=== PATIENT | female | born 1990 | race American Indian/Alaskan Native ===

== ENCOUNTER 2018-03-03 02:41 | Emergency (ER) | payer SELFPAY ==
[2018-03-03 03:00] LABS: HCG,QUALITATIVE URINE NEGATIVE (NEGATIVE)
[2018-03-03 03:07] LABS: SQUAMOUS EPITHIAL 3 /hpf (0-5); URINE BILIRUBIN NEGATIVE (NEGATIVE); URINE BLOOD NEGATIVE (NEGATIVE); URINE CLARITY Hazy (Clear); URINE COLOR Yellow (YELLOW); URINE GLUCOSE (UA) NORMAL (Normal); URINE LEUKOCYTE ESTERASE TRACE Leu/uL (Negative); URINE PROTEIN NEGATIVE (NEGATIVE); URINE UROBILINOGEN NORMAL mg/dL (0.2-1.0)
[2018-03-03] MEDS ORDERED: cefTRIAXone (Rocephin) 250 mg Inj IM STA (03:38)
--- NOTE | 2018-03-03 04:22 | C.PDOC ---
History Of Present Illness 27 y/o female presents to the ED with complaints of suprapubic pain, dysuria, and vaginal discharge with foul odor for 2 days. Patient is sexually active, and admits she does not use protection. No prior history of STDs. Otherwise she denies any fever, nausea, or vomiting. Time Seen by Provider: 03/03/18 03:11 Chief Complaint (Nursing): Female Genitourinary History Per: Patient History/Exam Limitations: no limitations Onset/Duration Of Symptoms: Days Current Symptoms Are (Timing): Still Present Past Medical History Reviewed: Historical Data, Nursing Documentation, Vital Signs Vital Signs: Last Vital Signs Temp 98.2 F 03/03/18 04:36 Pulse 84 03/03/18 04:36 Resp 20 03/03/18 04:36 BP 128/70 03/03/18 04:36 Pulse Ox 99 03/03/18 04:36 - Medical History PMH: Kidney Stones, Chronic Kidney Disease Surgical History: No Surg Hx Family History: States: No Known Family Hx - Social History Hx Tobacco Use: Yes Hx Alcohol Use: Yes Hx Substance Use: No Review Of Systems Constitutional: Negative for: Fever, Chills Gastrointestinal: Negative for: Nausea, Vomiting Genitourinary: Positive for: Dysuria, Vaginal Discharge (with foul odor), Pelvic Pain. Negative for: Incontinence Musculoskeletal: Negative for: Back Pain Physical Exam - Physical Exam Appears: Non-toxic, No Acute Distress Skin: Normal Color, Warm, Dry Head: Atraumatic, Normacephalic Eye(s): bilateral: Normal Inspection, PERRL, EOMI Oral Mucosa: Moist Neck: Trachea Midline, Supple Chest: Symmetrical Cardiovascular: Rhythm Regular, No Murmur Respiratory: Normal Breath Sounds, No Rales, No Rhonchi, No Wheezing Gastrointestinal/Abdominal: Soft, No Tenderness, No Guarding, No Rebound Pelvic: Vaginal Discharge (thick fishy vaginal discharge with foul odor), Cervical Motion Tenderness (minimal), No Adnexal Tenderness, No Mass Extremity: Bilateral: Atraumatic, Normal Color And Temperature, Normal ROM Neurological/Psych: Oriented x3, Normal Speech, Normal Motor, Normal Sensation Gait: Steady ED Course And Treatment O2 Sat by Pulse Oximetry: 100 (RA) Pulse Ox Interpretation: Normal Progress Note: Urine and G/C culture sent. Urine is clear. Patient treated with Ceftriaxone and Zithromax. Advised follow up with the clinic for further evaluation, or return to the ER for acutely worsening symptoms. Disposition Counseled Patient/Family Regarding: Diagnosis, Need For Followup, Rx Given - Disposition Referrals: [facility] [Outside] Disposition: HOME/ ROUTINE Disposition Time: 04:19 Condition: STABLE Additional Instructions: Follwo up in clinic Avoid unprotected sex Return to ERif worse Prescriptions: Metronidazole 500 mg PO BID #14 tablet Forms: [employer] (Cymro), General Discharge Instructions, Gen Discharge Inst Nigerian - POA Present On Arrival: None - Clinical Impression Clinical Impression: Cervicitis, BV (bacterial vaginosis) - PA / [employer] / Resident Statement MD/DO has reviewed & agrees with the documentation as recorded. - Scribe Statement The provider has reviewed the documentation as recorded by the Scribe (Mechelle Longo) All medical record entries made by the Scribe were at my direction and personally dictated by me. I have reviewed the chart and agree that the record accurately reflects my personal performance of the history, physical exam, medical decision making, and the department course for this patient. I have also personally directed, reviewed, and agree with the discharge instructions and disposition.
[2018-03-03 04:37] VITALS: BP 128/70; PULSE 84; RESP 20; TEMP 98.2
[2018-03-03 04:42] VITALS: O2SAT 100
== END 2018-03-03 04:37 | disposition home or self-care (01) ==
LOC: C.ER 02:41
DX: N76.0 Acute vaginitis (principal); N72 Inflammatory disease of cervix uteri; N18.9 Chronic kidney disease, unspecified; Z72.0 Tobacco use
CPT/HCPCS: 81001; 84703; 87491; 87591; 96372; 99284; J0696

== ENCOUNTER 2018-09-12 22:10 | Emergency (ER) | payer SELFPAY ==
[2018-09-12 22:13] VITALS: RESP 20
[2018-09-12] MEDS ORDERED: Sodium Chloride 0.9% 1,000 ML IV ONE (22:27)
[2018-09-12] MEDS ORDERED: Sodium Chloride 0.9% 1,000 ML ONE (22:55)
[2018-09-12 22:56] LABS: BASO # 0.1 K/uL (0.0-0.2); BASO % 0.8 % (0.0-2.0); EOS # 0.2 K/uL (0.0-0.7); EOS % 2.8 % (0.0-4.0); HEMOGLOBIN 11.8 g/dL (11.0-16.0); LYMPH # 2.5 K/uL (1.0-4.3); LYMPH % 31.5 % (20.0-40.0); MEAN CORPUSCULAR HEMOGLOBIN 26.9 pg (27.0-31.0); MEAN CORPUSCULAR HGB CONC 33.2 g/dL (33.0-37.0); MEAN PLATELET VOLUME 7.4 fL (7.2-11.7); MONO # 0.9 K/uL (0.0-0.8); MONO % 11.2 % (0.0-10.0); NEUT # 4.3 K/uL (1.8-7.0); NEUT % 53.7 % (50.0-75.0); NRBC % 0.1 % (0.0-2.0); RBC 4.37 Mil/uL (3.80-5.20); RED CELL DISTRIBUTION WIDTH 13.9 % (11.5-14.5)
[2018-09-12 23:09] LABS: ALB/GLOB RATIO 1.3 (1.0-2.1); ALBUMIN 4.2 g/dL (3.5-5.0); ALT/SGPT 13 U/L (9-52); AST/SGOT 17 U/L (14-36); BLOOD UREA NITROGEN 13 mg/dL (7-17); CALCIUM 8.4 mg/dl (8.6-10.4); GFR NON-AFRICAN AMERICAN > 60
[2018-09-12 23:27] LABS: CK-MB < 0.22 ng/mL (0.0-3.38)
[2018-09-12] MEDS ORDERED: Morphine 4 MG/ML VIAL ONE (23:57)
--- NOTE | 2018-09-13 00:18 | C.PDOC ---
History Of Present Illness 27 y/o female comes in to ED complaining of a left-sided sharp non-radiating pleuritic chest pain that started yesterday. Denies SOB, cough, fever, or palpitations. Patient denies any PMHx or history of cardiac disease in family. Also denies history of PE or DVT in immediate family. Time Seen by Provider: 09/12/18 22:15 Chief Complaint (Nursing): Chest Pain History Per: Patient History/Exam Limitations: no limitations Onset/Duration Of Symptoms: Days Current Symptoms Are (Timing): Still Present Past Medical History Reviewed: Historical Data, Nursing Documentation, Vital Signs Vital Signs: Last Vital Signs Temp 99.1 F 09/12/18 22:10 Pulse 96 H 09/12/18 22:10 Resp 20 09/12/18 22:10 BP 148/71 09/12/18 22:10 Pulse Ox 98 09/12/18 22:10 - Medical History PMH: Kidney Stones, Chronic Kidney Disease Family History: States: No Known Family Hx - Social History Hx Tobacco Use: Yes Hx Alcohol Use: Yes Hx Substance Use: No - Immunization History Hx Tetanus Toxoid Vaccination: Yes Hx Influenza Vaccination: No Hx Pneumococcal Vaccination: No Review Of Systems Constitutional: Negative for: Fever Cardiovascular: Positive for: Chest Pain (Left-sided, sharp, pleuritic). Negative for: Palpitations Respiratory: Negative for: Cough, Shortness of Breath Physical Exam - Physical Exam Appears: Non-toxic, In Acute Distress (in moderate pain), Other (Uncomfortable) Skin: Warm, Dry Head: Atraumatic, Normacephalic Eye(s): bilateral: Normal Inspection Oral Mucosa: Moist Chest: Symmetrical Cardiovascular: Rhythm Regular, No Murmur Respiratory: Normal Breath Sounds, No Rales, No Rhonchi, No Wheezing Gastrointestinal/Abdominal: Soft, No Tenderness Extremity: No Calf Tenderness, Other (No leg swelling) Extremity: Bilateral: Normal Color And Temperature, Normal ROM Neurological/Psych: Oriented x3, Normal Speech ED Course And Treatment - Laboratory Results Result Diagrams: 09/12/18 22:51 09/12/18 22:51 ECG Rhythm: Sinus Tachycardia Interpretation Of ECG: Normal axis. No acute ST/T wave changes. Rate From EC O2 Sat by Pulse Oximetry: 98 (RA) Pulse Ox Interpretation: Normal - Radiology CXR: Interpreted by Me, Viewed By Me CXR Interpretation: Yes: No Acute Disease. No: Infiltrates, Other (effusions) Progress Note: Bloodwork and chest XR done. Patient was given morphine and IV fluids. Disposition Counseled Patient/Family Regarding: Studies Performed, Diagnosis, Need For Followup, Rx Given - Disposition Referrals: [facility] at [facility] [Outside] Disposition: HOME/ ROUTINE Disposition Time: 00:35 Condition: STABLE Additional Instructions: FOLLOW UP WITH YOUR DOCTOR/CLINIC IN 1-2 DAYS USE MEDICATIONS NEEDED RETURN TO ER IF SYMPTOMS WORSEN Prescriptions: Cyclobenzaprine [Flexeril] 10 mg PO BID PRN #15 tab PRN Reason: Muscle Spasm Naproxen [Naprosyn] 1 tab PO BID PRN #25 tab PRN Reason: Pain Instructions: Costochondritis (DC) Forms: [employer] (Sami) Print Language: PASHTO - POA Present On Arrival: None - Clinical Impression Clinical Impression: Chest wall pain - Scribe Statement The provider has reviewed the documentation as recorded by the Giana Uriarte Provider Attestation: All medical record entries made by the Giana were at my direction and personally dictated by me. I have reviewed the chart and agree that the record accurately reflects my personal performance of the history, physical exam, medical decision making, and the department course for this patient. I have also personally directed, reviewed, and agree with the discharge instructions and disposition.
[2018-09-13 00:29] LABS: URINE BILIRUBIN NEGATIVE (NEGATIVE); URINE BLOOD NEGATIVE (NEGATIVE); URINE CLARITY Clear (Clear); URINE COLOR Colorless (YELLOW); URINE GLUCOSE (UA) NORMAL (Normal); URINE LEUKOCYTE ESTERASE NEG Leu/uL (Negative); URINE PROTEIN NEGATIVE (NEGATIVE); URINE UROBILINOGEN NORMAL mg/dL (0.2-1.0)
[2018-09-13 00:41] LABS: HCG,QUALITATIVE URINE NEGATIVE (NEGATIVE)
[2018-09-13 01:53] VITALS: BP 132/78; PULSE 94; TEMP 98.9; O2SAT 97
--- NOTE | 2018-09-13 10:36 | RAD ---
Date of service: 09/12/2018 HISTORY: Chest pain COMPARISON: No prior. TECHNIQUE: Chest PA and lateral FINDINGS: LINES AND TUBES: None. LUNG AND PLEURA: The lungs are well inflated and clear. No pleural effusion or pneumothorax. HEART AND MEDIASTINUM: The heart is not enlarged. No aortic atherosclerotic calcification present. The hilar and mediastinal contours are within normal limits. SKELETAL STRUCTURES: The bony structures are within normal limits for the patient's age. VISUALIZED UPPER ABDOMEN: Normal. OTHER FINDINGS: None. IMPRESSION: No active pulmonary disease.
--- NOTE | 2018-09-14 13:36 | CARD ---
APPROVED REPORT Date of service: 09/12/2018 EKG Measurement Heart [id number] <Conclusion> Sinus tachycardia Possible Left atrial enlargement Borderline ECG
== END 2018-09-13 00:50 | disposition home or self-care (01) ==
LOC: C.ER 22:10
DX: R07.89 Other chest pain (principal); N18.9 Chronic kidney disease, unspecified; Z87.442 Personal history of urinary calculi
CPT/HCPCS: 71046; 80053; 81001; 82550; 82553; 84484; 84703; 85025; 85378; 93005; 96374; 99284; J2270; J7030

== ENCOUNTER 2018-09-20 15:20 | Inpatient (IN) | payer OTHER ==
[2018-09-20] MEDS ORDERED: Sodium Chloride 0.9% 1,000 ML IV ONE (15:58)
[2018-09-20 16:13] LABS: BASO # 0.1 K/uL (0.0-0.2); BASO % 0.5 % (0.0-2.0); EOS # 0.1 K/uL (0.0-0.7); EOS % 0.5 % (0.0-4.0); LYMPH # 0.9 K/uL (1.0-4.3); LYMPH % 6.8 % (20.0-40.0); MEAN CORPUSCULAR HEMOGLOBIN 26.7 pg (27.0-31.0); MEAN CORPUSCULAR HGB CONC 32.1 g/dL (33.0-37.0); MEAN PLATELET VOLUME 7.3 fL (7.2-11.7); MONO # 0.9 K/uL (0.0-0.8); MONO % 6.9 % (0.0-10.0); NEUT # 11.7 K/uL (1.8-7.0); NEUT % 85.3 % (50.0-75.0); PLATELET COUNT 269 K/uL (130-400); RBC 4.13 Mil/uL (3.80-5.20)
[2018-09-20 16:14] LABS: WHITE BLOOD COUNT 13.7 K/uL (4.8-10.8)
[2018-09-20 16:15] LABS: MEAN CELL VOLUME 83.2 fL (81.0-99.0)
[2018-09-20 16:17] LABS: SQUAMOUS EPITHIAL < 1 /hpf (0-5); URINE BACTERIA OCC (<OCC); URINE BILIRUBIN NEGATIVE (NEGATIVE); URINE BLOOD 1+ (NEGATIVE); URINE CLARITY Clear (Clear); URINE COLOR Yellow (YELLOW); URINE GLUCOSE (UA) NORMAL (Normal); URINE LEUKOCYTE ESTERASE 2+ Leu/uL (Negative); URINE PROTEIN NEGATIVE (NEGATIVE); URINE UROBILINOGEN NORMAL mg/dL (0.2-1.0)
[2018-09-20 16:18] LABS: HCG,QUALITATIVE URINE NEGATIVE (NEGATIVE)
[2018-09-20] MEDS ORDERED: LIDOCAINE IV STA (16:28)
[2018-09-20] MEDS ORDERED: SODIUM CHLORIDE 0.9% IV STA (16:28)
[2018-09-20 16:41] LABS: ALB/GLOB RATIO 1.2 (1.0-2.1); ALBUMIN 4.2 g/dL (3.5-5.0); ALT/SGPT 16 U/L (9-52); AST/SGOT 22 U/L (14-36); BLOOD UREA NITROGEN 19 mg/dL (7-17); CALCIUM 9.3 mg/dl (8.6-10.4); GFR NON-AFRICAN AMERICAN > 60; LIPASE 52 U/L (23-300)
[2018-09-20] MEDS ORDERED: Morphine 4 MG/ML VIAL ONE ×2 (17:51→19:19)
[2018-09-20 18:01] LABS: BANDS 2 % (0-2); HYPOCHROMIC SLIGHT; LYMPHOCYTE 8 % (20-40); MONOCYTE 4 % (0-10); NEUTROPHIL 86 % (50-75); PLATELET ESTIMATE NORMAL (NORMAL); POIKILOCYTOSIS SLIGHT; TOTAL CELLS COUNTED 100
[2018-09-20] MEDS ORDERED: cefTRIAXone 1 gm 1 GM/100 ML BAG IVPB ONE (18:20)
--- NOTE | 2018-09-20 18:23 | C.PDOC ---
History Of Present Illness 27 years old female presents to ED for complaints of left sided flank pain that began this morning. Patient states pain was initially intermittent but is now constant and nonradiating. She reports symptoms are similar to prior episode of kidney stone/renal colic. Patient denies fever, dysuria/hematuria, abdominal pain, vaginal bleeding. Time Seen by Provider: 09/20/18 15:52 Chief Complaint (Nursing): Female Genitourinary History/Exam Limitations: no limitations Onset/Duration Of Symptoms: Hrs, Persistent Current Symptoms Are (Timing): Still Present Severity: Moderate Radiation Of Pain To:: Flank Associated Symptoms: denies: Fever, Chills, Nausea, Vomiting, Diarrhea Exacerbating Factors: None Abnormal Vaginal Bleeding: No Past Medical History Reviewed: Historical Data, Nursing Documentation, Vital Signs Vital Signs: Last Vital Signs Temp 98.5 F 09/20/18 17:43 Pulse 77 09/20/18 17:43 Resp 18 09/20/18 17:43 BP 126/87 09/20/18 17:43 Pulse Ox 99 09/20/18 17:43 - Medical History PMH: Kidney Stones, Chronic Kidney Disease Family History: States: No Known Family Hx - Social History Hx Tobacco Use: Yes Hx Alcohol Use: Yes Hx Substance Use: No - Immunization History Hx Tetanus Toxoid Vaccination: Yes Hx Influenza Vaccination: No Hx Pneumococcal Vaccination: No Review Of Systems Constitutional: Negative for: Fever, Chills Cardiovascular: Negative for: Chest Pain, Palpitations Respiratory: Negative for: Cough, Shortness of Breath Gastrointestinal: Positive for: Other (Left sided flank pain ). Negative for: Nausea, Vomiting, Abdominal Pain, Diarrhea Genitourinary: Negative for: Dysuria, Hematuria Skin: Negative for: Rash Neurological: Negative for: Weakness, Numbness Physical Exam - Physical Exam Appears: Well, Non-toxic, Other (Uncomfortable appearing, in moderate pain) Skin: Normal Color, Warm, Dry, No Rash Head: Normacephalic Eye(s): bilateral: Normal Inspection Oral Mucosa: Moist Neck: Supple Cardiovascular: Rhythm Regular Respiratory: Normal Breath Sounds, No Rales, No Rhonchi, No Wheezing Gastrointestinal/Abdominal: Normal Exam, Bowel Sounds (Active ), Soft, No Tenderness Back: CVA Tenderness (Left sided ) Extremity: Normal ROM Extremity: Bilateral: Atraumatic Neurological/Psych: Oriented x3 Gait: Steady ED Course And Treatment - Laboratory Results Result Diagrams: 09/20/18 16:10 09/20/18 16:10 O2 Sat by Pulse Oximetry: 99 (RA ) Pulse Ox Interpretation: Normal - CT Scan/US CT SCAN ABD/PELVIS Other Rad Studies (CT/US): Read By Radiologist, Radiology Report Reviewed CT/US Interpretation: EXAM: CT Abdomen without IV contrast. CLINICAL HISTORY: Lefy flank pain, hx: kidney stones. TECHNIQUE: Axial computed tomography images of the abdomen and pelvis without intravenous contrast. 0.00 mGy-cm. CONTRAST: Without. COMPARISON: None provided. FINDINGS: LUNG BASES: The lung bases appear clear. No pleural effusions are seen. LIVER: Unremarkable. GALLBLADDER AND BILE DUCTS: The gallbladder appears within normal limits. No radioopaque gallstones are seen. No biliary ductal dilatation is evident. PANCREAS: Unremarkable. SPLEEN: Unremarkable. ADRENAL GLANDS: Unremarkable. KIDNEYS, URETERS, AND BLADDER: There are 3-4 mm calculi seen in both kidneys. There is an approximate 1 cm calculus at the upper portion of the left kidney. There is mild hydronephrosis of the left kidney and left hydroureter into the pelvis. There is an approximate 5 x 6 mm oval calculus suspected at the left distal ureter likely causing obstruction. STOMACH AND BOWEL: Unremarkable appearance of the stomach and bowel. No evidence of bowel obstruction. No evidence suggesting enteritis or colitis. APPENDIX: No evidence of acute appendicitis on CT examination. PERITONEUM: No free fluid. No free air. LYMPH NODES: No lymphadenopathy is evident. VASCULATURE: No evidence of abdominal aortic aneurysm. BONES: No aggressive appearing osseous lesion. No acute osseous pathology evident. IMPRESSION: Subcentimeter calculi both kidneys. Larger approximate 1 cm calculus at the superior aspect left kidney. Mild hydronephrosis of the left kidney and hydroureter left side. Suspicion of an approximate 5 x 6 mm calculus at the left distal ureter. Close clinical correlation and follow-up study or even contrast-enhanced CT examination may be considered. . Electronically signed on Sep 20, 2018 5:48:27 PM EST by: Levon Sevilla M.D., Certified by [facility], Diagnostic Radiology Progress Note: Blood work, UA, Upreg, CT abd/pelvis ordered and reviewed. Patient given IV NS bolus, IV toradol. On reassessment, patient still c/o left sided flank pain - IV lidocaine given. 17:40- Patient continues to have significant pain - IV morphine ordered. UA shows UTI - rocephin IV given. CT scan shows left sided kidney stone with hydronephrosis + UTI + leukocytosis - patient will need admission. Call placed to Dr. Hodan La at 6:36pm, pending call back. Disposition - Disposition Disposition Time: 19:00 Condition: STABLE Forms: [employer] (Andorran) - Clinical Impression Clinical Impression: Renal colic on left side, Kidney stone on left side, Hydronephrosis, left, UTI (urinary tract infection) - Scribe Statement The provider has reviewed the documentation as recorded by the Scribe Juanita Vargas All medical record entries made by the Scribe were at my direction and personally dictated by me. I have reviewed the chart and agree that the record accurately reflects my personal performance of the history, physical exam, medical decision making, and the department course for this patient. I have also personally directed, reviewed, and agree with the discharge instructions and disposition. Physician Patient Turnover Patient Signed Over To: Didier Gil Handoff Comments: pending Dr. Hodan La, admission
--- NOTE | 2018-09-20 20:11 | CP.PCM.HP ---
<Ai Guaman - Last Filed: 09/21/18 00:47> History of Present Illness - History of Present Illness History of Present Illness: CC: Left flank pain Patient is a 27 year old female with pmhx of kidney stones presenting to ED with complaints of acute left sided flank pain that awoke her from her sleep this morning. She reports the pain is sharp and localized to the left lower flank and low back. Patient reports symptoms consistent with previous kidney stone episodes. Pt reports dysuria, increased frequency in urination and suprapubic tenderness for 2 weeks. Denies fevers, nausea, vomiting. Pt reports she was recently here on 09/12/18 for evaluation of left breast and chest pain. Pt reports pain was throbbing in nature, localized to her left upper breast, tender to touch. Pt reports similar pains before related to hormonal cycles of her period and cystic breast, however this was more intense. Pt reports moderate improvement in symptoms now. Denies radiating pain, SOB. pmhx: nephrolithiasis pshx: urological procedure for previous stones meds: denies allergies: doxycycline-rash sochx: 1 cigarette daily x10yrs, social alcohol, denies drug use famhx: denies Present on Admission - Present on Admission Any Indicators Present on Admission: No Review of Systems - EENT Eyes: absent: Blurred Vision - Breasts Breasts: Pain, Swelling Additional comments: left upper breast pain and swelling - Cardiovascular Cardiovascular: Chest Pain (chest/breast pain). absent: Diaphoresis, Pedal Edema - Respiratory Respiratory: absent: Dyspnea - Gastrointestinal Gastrointestinal: absent: Diarrhea, Nausea, Vomiting - Genitourinary Genitourinary: Flank Pain (left), Urinary Frequency, Hx Renal/Bladder Calculi. absent: Hematuria Past Patient History - Infectious Disease Hx of Infectious Diseases: None - Past Social History Smoking Status: Light Smoker < 10 Cigarettes Daily - RENAL Hx Chronic Kidney Disease: Yes Hx Kidney Stones: Yes - GENITOURINARY/GYNECOLOGICAL Hx Genitourinary Disorders: Yes Hx Urinary Tract Infection: Yes - PSYCHIATRIC Hx Substance Use: No - SURGICAL HISTORY Hx Surgeries: Yes Other/Comment: kidney stones - ANESTHESIA Hx Anesthesia: Yes Hx Anesthesia Reactions: No Hx Malignant Hyperthermia: No Meds Allergies/Adverse Reactions: Allergies Allergy/AdvReac Type Severity Reaction Status Date / Time doxycycline Allergy RASH Verified 09/20/18 15:27 Physical Exam - Constitutional Appears: Non-toxic, No Acute Distress - Head Exam Head Exam: ATRAUMATIC, NORMAL INSPECTION, NORMOCEPHALIC - Eye Exam Eye Exam: EOMI, Normal appearance - ENT Exam ENT Exam: Mucous Membranes Moist, Normal Exam - Neck Exam Neck exam: Positive for: Normal Inspection - Respiratory Exam Respiratory Exam: Clear to Auscultation Bilateral, NORMAL BREATHING PATTERN. absent: Respiratory Distress - Cardiovascular Exam Cardiovascular Exam: REGULAR RHYTHM - GI/Abdominal Exam GI & Abdominal Exam: Normal Bowel Sounds, Soft. absent: Distended - Extremities Exam Extremities exam: Positive for: normal inspection. Negative for: calf tenderness, pedal edema - Back Exam Back exam: CVA tenderness (L) Additional comments: tender to palpation left lower flank - Neurological Exam Neurological exam: Alert, Oriented x3 - Psychiatric Exam Psychiatric exam: Normal Affect, Normal Mood - Skin Skin Exam: Dry, Intact, Normal Color, Warm Results - Vital Signs Recent Vital Signs: Last Vital Signs Temp 98 F 09/20/18 19:22 Pulse 78 09/20/18 19:22 Resp 18 09/20/18 19:22 BP 126/73 09/20/18 19:22 Pulse Ox 98 09/20/18 19:22 - Labs Result Diagrams: 09/20/18 16:10 09/20/18 16:10 Labs: Laboratory Results - last 24 hr 09/20/18 09/20/18 09/20/18 16:10 16:10 16:10 WBC 13.7 H D RBC 4.13 Hgb 11.0 Hct 34.4 MCV 83.2 D MCH 26.7 L MCHC 32.1 L RDW 14.0 Plt Count 269 MPV 7.3 Neut % (Auto) 85.3 H Lymph % (Auto) 6.8 L [place] % (Auto) 6.9 Eos % (Auto) 0.5 Baso % (Auto) 0.5 Neut # (Auto) 11.7 H Lymph # (Auto) 0.9 L [place] # (Auto) 0.9 H Eos # (Auto) 0.1 Baso # (Auto) 0.1 Neutrophils % (Manual) 86 H Band Neutrophils % 2 Lymphocytes % (Manual) 8 L Monocytes % (Manual) 4 Platelet Estimate Normal Hypochromasia (manual) Slight Poikilocytosis (manual Slight Sodium 136 Potassium 4.2 Chloride 103 Carbon Dioxide 22 Anion Gap 15 BUN 19 H Creatinine 0.7 Est GFR ( Amer) > 60 Est GFR (Non-Af Amer) > 60 Random Glucose 125 H D Calcium 9.3 Total Bilirubin 0.4 AST 22 ALT 16 Alkaline Phosphatase 65 Total Protein 7.8 Albumin 4.2 Globulin 3.6 Albumin/Globulin Ratio 1.2 Lipase 52 Urine Color Yellow Urine Clarity Clear Urine pH 5.0 Ur Specific [place] 1.018 Urine Protein Negative Urine Glucose (UA) Normal Urine Ketones Negative Urine Blood 1+ H Urine Nitrate Negative Urine Bilirubin Negative Urine Urobilinogen Normal Ur Leukocyte Esterase 2+ H Urine WBC (Auto) 86 H Urine RBC (Auto) 5 H Ur Squamous Epith Cells < 1 Urine Bacteria Occ H Urine HCG, Qual Negative Assessment & Plan - Assessment and Plan (Free Text) Assessment: 27 year old female admitted for treatment of nephrolithiasis Plan: Nephrolithiasis -CT: multiple calculi in kidneys B/L. 1cm calculi in superior left kidnet; left sided hyronephrosis and hydroureter. 5x6mm of left distal ureter -abd xray: -rocephin -f/u urine/blood cx -pain medication, morphine prn -IVF, NS @125/hr -antiemetic, zofran prn -NPO for procedure with urology 09/21 -strain all urine -Uro consult, Dr. Erica Costello of chest pain -f/u EKG -f/u chest xray Ppx -DVT ppx, SCDs -GI ppx not indicated Patient medically stable for surgery pending EKG and CXR findings Discussed with Dr. Frye -Ai Guaman <Toi Frye - Last Filed: 09/21/18 06:32> Results - Vital Signs Recent Vital Signs: Last Vital Signs Temp 98.5 F 09/21/18 04:33 Pulse 87 09/21/18 05:47 Resp 16 09/21/18 05:47 BP 95/67 L 09/21/18 05:47 Pulse Ox 100 09/21/18 05:47 - Labs Result Diagrams: 09/21/18 03:56 09/21/18 03:56 Labs: Laboratory Results - last 24 hr 09/20/18 09/20/18 09/20/18 16:10 16:10 16:10 WBC 13.7 H D RBC 4.13 Hgb 11.0 Hct 34.4 MCV 83.2 D MCH 26.7 L MCHC 32.1 L RDW 14.0 Plt Count 269 MPV 7.3 Neut % (Auto) 85.3 H Lymph % (Auto) 6.8 L [place] % (Auto) 6.9 Eos % (Auto) 0.5 Baso % (Auto) 0.5 Neut # (Auto) 11.7 H Lymph # (Auto) 0.9 L [place] # (Auto) 0.9 H Eos # (Auto) 0.1 Baso # (Auto) 0.1 Neutrophils % (Manual) 86 H Band Neutrophils % 2 Lymphocytes % (Manual) 8 L Reactive Lymphs % Monocytes % (Manual) 4 Nucleated RBC % Platelet Estimate Normal Hypochromasia (manual) Slight Poikilocytosis (manual Slight PT INR APTT Sodium 136 Potassium 4.2 Chloride 103 Carbon Dioxide 22 Anion Gap 15 BUN 19 H Creatinine 0.7 Est GFR ( Amer) > 60 Est GFR (Non-Af Amer) > 60 Random Glucose 125 H D Calcium 9.3 Total Bilirubin 0.4 AST 22 ALT 16 Alkaline Phosphatase 65 Total Protein 7.8 Albumin 4.2 Globulin 3.6 Albumin/Globulin Ratio 1.2 Lipase 52 Urine Color Yellow Urine Clarity Clear Urine pH 5.0 Ur Specific [place] 1.018 Urine Protein Negative Urine Glucose (UA) Normal Urine Ketones Negative Urine Blood 1+ H Urine Nitrate Negative Urine Bilirubin Negative Urine Urobilinogen Normal Ur Leukocyte Esterase 2+ H Urine WBC (Auto) 86 H Urine RBC (Auto) 5 H Ur Squamous Epith Cells < 1 Urine Bacteria Occ H Urine HCG, Qual Negative 09/20/18 09/21/18 09/21/18 20:40 03:56 03:56 WBC 16.5 H RBC 3.89 Hgb 10.3 L Hct 31.9 L MCV 82.0 MCH 26.6 L MCHC 32.4 L RDW 13.6 Plt Count 245 MPV 7.5 Neut % (Auto) 86.1 H Lymph % (Auto) 7.7 L [place] % (Auto) 5.7 Eos % (Auto) 0.3 Baso % (Auto) 0.2 Neut # (Auto) 14.2 H Lymph # (Auto) 1.3 [place] # (Auto) 0.9 H Eos # (Auto) 0.1 Baso # (Auto) 0.0 Neutrophils % (Manual) 78 H Band Neutrophils % 2 Lymphocytes % (Manual) 12 L Reactive Lymphs % 1 H Monocytes % (Manual) 7 Nucleated RBC % 1 H Platelet Estimate Normal Hypochromasia (manual) Poikilocytosis (manual PT 11.5 INR 1.1 APTT 28 Sodium 136 Potassium 4.1 Chloride 105 Carbon Dioxide 25 Anion Gap 11 BUN 12 Creatinine 0.6 L Est GFR ( Amer) > 60 Est GFR (Non-Af Amer) > 60 Random Glucose 107 H Calcium 8.2 L Total Bilirubin AST ALT Alkaline Phosphatase Total Protein Albumin Globulin Albumin/Globulin Ratio Lipase Urine Color Urine Clarity Urine pH Ur Specific [place] Urine Protein Urine Glucose (UA) Urine Ketones Urine Blood Urine Nitrate Urine Bilirubin Urine Urobilinogen Ur Leukocyte Esterase Urine WBC (Auto) Urine RBC (Auto) Ur Squamous Epith Cells Urine Bacteria Urine HCG, Qual Assessment & Plan - Date & Time Date: 09/21/18 (I have seen and examined the patient. I agree with the findings and plan of care as documented by Dr. Guaman. Patient with obstructing nephrolithiasis. Consult to Urology. Symptomatic treatment. Medically optimize prior to intended procedure by urology. Monitor for acute changes.) Time: 06:31 Attending/Attestation - Attestation I have personally seen and examined this patient.: Yes I have fully participated in the care of the patient.: Yes I have reviewed all pertinent clinical information: Yes
[2018-09-20] MEDS ORDERED: HYDROmorphone 0.5 mg/0.5 ml ISec IVP PRN (20:55)
[2018-09-20 20:58] LABS: INR 1.1; PROTHROMBIN TIME 11.5 SECONDS (9.7-12.2)
[2018-09-20] MEDS: Sodium Chloride 0.9% 1,000 ML IV SCH (21:44)
[2018-09-21 03:59] LABS: BASO % 0.2 % (0.0-2.0); EOS # 0.1 K/uL (0.0-0.7); EOS % 0.3 % (0.0-4.0); HEMOGLOBIN 10.3 g/dL (11.0-16.0); LYMPH # 1.3 K/uL (1.0-4.3); LYMPH % 7.7 % (20.0-40.0); MEAN CORPUSCULAR HEMOGLOBIN 26.6 pg (27.0-31.0); MEAN CORPUSCULAR HGB CONC 32.4 g/dL (33.0-37.0); MEAN PLATELET VOLUME 7.5 fL (7.2-11.7); MONO # 0.9 K/uL (0.0-0.8); MONO % 5.7 % (0.0-10.0); NEUT # 14.2 K/uL (1.8-7.0); NEUT % 86.1 % (50.0-75.0); PLATELET COUNT 245 K/uL (130-400); RBC 3.89 Mil/uL (3.80-5.20); RED CELL DISTRIBUTION WIDTH 13.6 % (11.5-14.5); WHITE BLOOD COUNT 16.5 K/uL (4.8-10.8)
[2018-09-21 04:16] LABS: BLOOD UREA NITROGEN 12 mg/dL (7-17); CALCIUM 8.2 mg/dl (8.6-10.4); GFR NON-AFRICAN AMERICAN > 60
[2018-09-21 05:21] LABS: BANDS 2 % (0-2); LYMPHOCYTE 12 % (20-40); MONOCYTE 7 % (0-10); NEUTROPHIL 78 % (50-75); NUCLEATED RED BLOOD CELL 1 % (0-0); PLATELET ESTIMATE NORMAL (NORMAL); REACTIVE LYMPHOCYTES 1 % (0-0); TOTAL CELLS COUNTED 100
[2018-09-21] MEDS: Sodium Chloride 0.9% 1,000 ML IV SCH ×2 (05:51→18:14)
[2018-09-21] MEDS ORDERED: Acetaminophen IV 1,000 MG in Premixed IV 1 EA IV ONE (06:29)
--- NOTE | 2018-09-21 07:42 | CT ---
Date of service: 09/20/2018 PROCEDURE: CT Abdomen and Pelvis without intravenous contrast HISTORY: LEFT FLANK PAIN R/O KIDNEY STONE COMPARISON: None. TECHNIQUE: Multiple contiguous axial images were performed through the abdomen and pelvis without the use of intravenous contrast. Subsequently, sagittal and coronal reformatted images were obtained. Radiation dose: Total exam DLP = 294.24 mGy-cm. This CT exam was performed using one or more of the following dose reduction techniques: Automated exposure control, adjustment of the mA and/or kV according to patient size, and/or use of iterative reconstruction technique. FINDINGS: LOWER THORAX: Mild focal nodular consolidation within the medial inferior aspect of the right middle lobe. 4 millimeter ground-glass pulmonary nodule within the posterior aspect of the right middle lobe on series 3 image 1. Multiple rounded nodules seen throughout the right lower lobe for example measuring 4 millimeters on series 3, image 20; 4 millimeters on series 3, image 14; 9 millimeters on series 3 image 10; and 4 millimeters on series 3, image 4. Additional focal area of nodular consolidation measuring 9 millimeters seen within the left lung anteriorly on series 3, image 18. LIVER: Unremarkable. No gross lesion or ductal dilatation. GALLBLADDER AND BILE DUCTS: Unremarkable. PANCREAS: Unremarkable. No gross lesion or ductal dilatation. SPLEEN: Unremarkable. ADRENALS: Unremarkable. No mass. KIDNEYS AND URETERS: 2 millimeter nonobstructive calculus in the lower pole of the right kidney. Left Kidney: Moderate left renal hydroureteronephrosis with obstructing calculus seen at the distal left ureter/ureteral vesicular junction. Additional 6 millimeter calculus in the upper pole of the left kidney as well as 2 millimeter calculus in the lower pole of the left kidney. Mild perinephric fat stranding and fluid and fluid. VASCULATURE: Unremarkable. No aortic aneurysm. No aortic atherosclerotic calcification or mural plaque present. BOWEL: Unremarkable. No obstruction. No gross mural thickening. APPENDIX: Unremarkable. Normal appendix. PERITONEUM: Unremarkable. No free fluid. No free air. LYMPH NODES: Few shotty para-aortic and inguinal lymph nodes. Few shotty mesenteric lymph nodes. BLADDER: Unremarkable. REPRODUCTIVE: Unremarkable. BONES: No acute fracture. OTHER FINDINGS: None. IMPRESSION: 1. Moderate left renal hydroureteronephrosis with obstructing calculus seen at the distal left ureter/ureteral vesicular junction. Additional 6 millimeter calculus in the upper pole of the left kidney as well as 2 millimeter calculus in the lower pole of the left kidney. Mild perinephric fat stranding and fluid and fluid. 2. Nonobstructive right renal calculus. 3. Multiple pulmonary nodules seen within the right lower lobe of the lung. Correlation with chest CT is recommended for further evaluation on a nonemergent basis. A preliminary report was generated at 5:48 p.m. on 09/20/[address] Levon Sevilla from [facility].
--- NOTE | 2018-09-21 07:50 | RAD ---
Chest x-ray single frontal view HISTORY: Chest pain. COMPARISON: 09/12/2018 FINDINGS: Mild to moderate venous congestion. Patchy increased markings at the lung bases; right greater than left. Nodular densities at the lung bases may represent nipple shadows. Suggestion of a possible small hiatal hernia. Heart size within normal limits. Surgical clips in the right axilla. Impression: Mild to moderate venous congestion. Patchy increased markings at the lung bases; right greater than left. Nodular densities at the lung bases may represent nipple shadows. Suggestion of a possible small hiatal hernia.
--- NOTE | 2018-09-21 08:40 | RAD ---
Date of service: 09/20/2018 HISTORY: renal colic COMPARISON: None available. FINDINGS: BOWEL: Nonobstructive bowel gas pattern. Relatively prominent retained fecal material identified in the right hemicolon, moderate otherwise through the remainder. No gross free intra peritoneal gas collection. No definite abdominal urolithiasis identified. Nonspecific calcifications in the inferior left hemipelvis soft tissues. BONES: Normal. OTHER FINDINGS: None. IMPRESSION: Nonspecific calcifications seen the inferior left hemipelvis soft tissues. Prominent retained fecal material scattered throughout the right hemicolon, moderate otherwise. No bowel obstruction appreciable.
[2018-09-21] MEDS ORDERED: Morphine 4 MG/ML VIAL IVP ONE (09:16)
[2018-09-21] MEDS ORDERED: cefTRIAXone 1 gm 1 GM/100 ML BAG IVPB ONE (09:53)
--- NOTE | 2018-09-21 10:56 | CP.PCM.PN ---
<Zak Dey - Last Filed: 09/21/18 18:46> Subjective - Date & Time of Evaluation Date of Evaluation: 09/21/18 Time of Evaluation: 08:00 - Subjective Subjective: PGY-[address] Audi Moore service Patient is seen and examined at bedside. Patient complains of pain on lower back and left lower abdominal area. Patient states her pain has improved from time fo admission, but continues to be constant. Patient denies fever, chills, chest pain, shortness of breath, n/v/d/c. Objective - Vital Signs/Intake and Output Vital Signs (last 24 hours): Temp Pulse Resp BP Pulse Ox 98.4 F 77 15 106/59 L 100 09/21/18 07:25 09/21/18 07:25 09/21/18 07:25 09/21/18 08:59 09/21/18 07:25 - Medications Medications: Current Medications Ceftriaxone Sodium 1 gm/ (Sodium Chloride) 100 mls @ 100 mls/hr IVPB DAILY TIM; Protocol Last Admin: 09/21/18 09:55 Dose: 100 mls/hr Sodium Chloride (Sodium Chloride 0.9%) 1,000 mls @ 125 mls/hr IV .Q8H TIM Last Admin: 09/21/18 05:51 Dose: 125 mls/hr Morphine Sulfate (Morphine) 4 mg IVP Q4 PRN PRN Reason: Pain, severe (8-10) Ondansetron HCl (Zofran Inj) 4 mg IVP Q6 PRN PRN Reason: Nausea/Vomiting Last Admin: 09/21/18 01:50 Dose: 4 mg Pneumococcal Polyvalent Vaccine (Pneumovax 23 Vaccine) 0.5 ml IM .ONCE ONE Stop: 09/23/18 10:01 - Labs Labs: 09/21/18 03:56 09/21/18 03:56 PT 11.5 SECONDS (9.7-12.2) 09/20/18 20:40 INR 1.1 09/20/18 20:40 APTT 28 SECONDS (21-34) 09/20/18 20:40 - Constitutional Appears: Non-toxic, No Acute Distress - Head Exam Head Exam: ATRAUMATIC, NORMAL INSPECTION, NORMOCEPHALIC - Eye Exam Eye Exam: EOMI, Normal appearance - ENT Exam ENT Exam: Mucous Membranes Moist, Normal Exam - Respiratory Exam Respiratory Exam: Clear to Ausculation Bilateral, NORMAL BREATHING PATTERN. absent: Rales, Rhonchi, Wheezes - Cardiovascular Exam Cardiovascular Exam: Tachycardia, REGULAR RHYTHM, +S1, +S2 - GI/Abdominal Exam GI & Abdominal Exam: Soft, Tenderness, Normal Bowel Sounds. absent: Distended Additional comments: left lower quadrant tenderness to superficial palpation - Extremities Exam Extremities Exam: Full ROM, Normal Capillary Refill, Normal Inspection. absent: Pedal Edema, Tenderness - Back Exam Back Exam: Full ROM, tenderness (left lower back tenderness to light palpation ) - Neurological Exam Neurological Exam: Alert, Awake, Oriented x3 - Psychiatric Exam Psychiatric exam: Normal Affect, Normal Mood - Skin Skin Exam: Dry, Intact, Normal Color, Warm Assessment and Plan - Assessment and Plan (Free Text) Assessment: 27 year old female admitted for treatment of nephrolithiasis, scheduled for cysto with Dr Hodan La Plan: Nephrolithiasis -CT: multiple calculi in kidneys B/L. 1cm calculi in superior left kidnet; left sided hyronephrosis and hydroureter. 5x6mm of left distal ureter -abd xray: nonspecific calcifications seen the inferior left hemipelvis soft tissues. Prominent retained fecal material scattered throughout the right hemicolon, moderate otherwise. No bowel obstruction appreciable. - cxray -mild to moderate venous congestion, patchy increased marking, small hiatial hernia. Nodular density lower lung bases mayrepresenting nipple shadows - EKG - NSR -blood cx - gram negative pérez x 1 bottle, no growth in 24 hour x 1 bottle -urine cx - f/u - White blood count increased from 13 to 16 -Uro consult, Dr. Erica La - cystoscopy in the am - will follow up post op recs -IVF, NS @125/hr -Zofran prn - Morphine 2mg x 1 dose in am - Morphine 4mg PRN for severe pain - Primaxin IVPB 500mg Q6H Hx of chest pain - EKG - NSR - chest xray -mild to moderate venous congestion, patchy increased marking, small hiatial hernia. Nodular density lower lung bases mayrepresenting nipple shadows - cont to monitor Ppx -DVT ppx, SCDs -GI ppx not indicated -Clear Liquid diet @125 cc/hr Plan discussed with Dr Teresa Dey, PGY-1 <Audi Moore H - Last Filed: 09/21/18 19:24> Objective - Vital Signs/Intake and Output Vital Signs (last 24 hours): Temp Pulse Resp BP Pulse Ox 98.1 F 76 20 118/77 100 09/21/18 17:28 09/21/18 17:28 09/21/18 17:28 09/21/18 17:28 09/21/18 17:28 Intake and Output: 09/21/18 09/22/18 18:59 06:59 Output Total 250 Balance -250 - Medications Medications: Current Medications Acetaminophen (Tylenol 325mg Tab) 650 mg PO Q6 PRN PRN Reason: Pain, moderate (4-7) Sodium Chloride (Sodium Chloride 0.9%) 1,000 mls @ 125 mls/hr IV .Q8H TIM Last Admin: 09/21/18 18:14 Dose: 125 mls/hr Imipenem/Cilastatin Sodium 500 (mg/ Dextrose) 100 mls @ 100 mls/hr IVPB Q6H TIM; Protocol Last Admin: 09/21/18 15:30 Dose: 100 mls Morphine Sulfate (Morphine) 4 mg IVP Q4 PRN PRN Reason: Pain, severe (8-10) Last Admin: 09/21/18 18:23 Dose: 4 mg Ondansetron HCl (Zofran Inj) 4 mg IVP Q6 PRN PRN Reason: Nausea/Vomiting Last Admin: 09/21/18 16:00 Dose: 4 mg Pneumococcal Polyvalent Vaccine (Pneumovax 23 Vaccine) 0.5 ml IM .ONCE ONE Stop: 09/23/18 10:01 - Labs Labs: 09/21/18 03:56 09/21/18 03:56 PT 11.5 SECONDS (9.7-12.2) 09/20/18 20:40 INR 1.1 09/20/18 20:40 APTT 28 SECONDS (21-34) 09/20/18 20:40 Attending/Attestation - Attestation Notes (Text): 09/21/18 19:23 Medical attending: Reviewed the above note by the resident, because of the blood cultures preliminary showing gram negative growth - abx have been changed to include IV Primaxin until further sensitivites returned.
[2018-09-21] MEDS ORDERED: Propofol 10 mg/ml Inj (20 ML) ONE (11:01)
[2018-09-21] MEDS ORDERED: Midazolam 2 MG/2 ML VIAL ONE ×2 (11:02→11:20)
[2018-09-21] MEDS ORDERED: Iohexol 240 (50 ml) ONE (11:09)
[2018-09-21] MEDS ORDERED: Lidocaine 2% Jelly (Uro-Jet) ONE (11:29)
--- NOTE | 2018-09-21 11:35 | CP.PCM.CON ---
Past Patient History - Infectious Disease Hx of Infectious Diseases: None - Past Medical History & Family History Past Medical History?: No - Past Social History Smoking Status: Light Smoker < 10 Cigarettes Daily - RENAL Hx Chronic Kidney Disease: Yes Hx Kidney Stones: Yes - MUSCULOSKELETAL/RHEUMATOLOGICAL Hx Falls: No - GENITOURINARY/GYNECOLOGICAL Hx Genitourinary Disorders: Yes Hx Urinary Tract Infection: Yes - PSYCHIATRIC Hx Substance Use: No - SURGICAL HISTORY Hx Surgeries: Yes Other/Comment: kidney stones 2013 - ANESTHESIA Hx Anesthesia: Yes Hx Anesthesia Reactions: No Hx Malignant Hyperthermia: No Meds Allergies/Adverse Reactions: Allergies Allergy/AdvReac Type Severity Reaction Status Date / Time doxycycline Allergy RASH Verified 09/20/18 15:27 - Medications Medications: Current Medications Ceftriaxone Sodium 1 gm/ (Sodium Chloride) 100 mls @ 100 mls/hr IVPB DAILY TIM; Protocol Last Admin: 09/21/18 09:55 Dose: 100 mls/hr Sodium Chloride (Sodium Chloride 0.9%) 1,000 mls @ 125 mls/hr IV .Q8H TIM Last Admin: 09/21/18 05:51 Dose: 125 mls/hr Morphine Sulfate (Morphine) 4 mg IVP Q4 PRN PRN Reason: Pain, severe (8-10) Ondansetron HCl (Zofran Inj) 4 mg IVP Q6 PRN PRN Reason: Nausea/Vomiting Last Admin: 09/21/18 01:50 Dose: 4 mg Pneumococcal Polyvalent Vaccine (Pneumovax 23 Vaccine) 0.5 ml IM .ONCE ONE Stop: 09/23/18 10:01 Results - Vital Signs Recent Vital Signs: Last Vital Signs Temp 98.4 F 09/21/18 07:25 Pulse 77 09/21/18 07:25 Resp 15 09/21/18 07:25 BP 106/59 L 09/21/18 08:59 Pulse Ox 100 09/21/18 07:25 - Labs Result Diagrams: 09/21/18 03:56 09/21/18 03:56 Labs: Laboratory Results - last 24 hr 09/20/18 09/20/18 09/20/18 16:10 16:10 16:10 WBC 13.7 H D RBC 4.13 Hgb 11.0 Hct 34.4 MCV 83.2 D MCH 26.7 L MCHC 32.1 L RDW 14.0 Plt Count 269 MPV 7.3 Neut % (Auto) 85.3 H Lymph % (Auto) 6.8 L [place] % (Auto) 6.9 Eos % (Auto) 0.5 Baso % (Auto) 0.5 Neut # (Auto) 11.7 H Lymph # (Auto) 0.9 L [place] # (Auto) 0.9 H Eos # (Auto) 0.1 Baso # (Auto) 0.1 Neutrophils % (Manual) 86 H Band Neutrophils % 2 Lymphocytes % (Manual) 8 L Reactive Lymphs % Monocytes % (Manual) 4 Nucleated RBC % Platelet Estimate Normal Hypochromasia (manual) Slight Poikilocytosis (manual Slight PT INR APTT Sodium 136 Potassium 4.2 Chloride 103 Carbon Dioxide 22 Anion Gap 15 BUN 19 H Creatinine 0.7 Est GFR ( Amer) > 60 Est GFR (Non-Af Amer) > 60 Random Glucose 125 H D Calcium 9.3 Total Bilirubin 0.4 AST 22 ALT 16 Alkaline Phosphatase 65 Total Protein 7.8 Albumin 4.2 Globulin 3.6 Albumin/Globulin Ratio 1.2 Lipase 52 Urine Color Yellow Urine Clarity Clear Urine pH 5.0 Ur Specific [place] 1.018 Urine Protein Negative Urine Glucose (UA) Normal Urine Ketones Negative Urine Blood 1+ H Urine Nitrate Negative Urine Bilirubin Negative Urine Urobilinogen Normal Ur Leukocyte Esterase 2+ H Urine WBC (Auto) 86 H Urine RBC (Auto) 5 H Ur Squamous Epith Cells < 1 Urine Bacteria Occ H Urine HCG, Qual Negative 09/20/18 09/21/18 09/21/18 20:40 03:56 03:56 WBC 16.5 H RBC 3.89 Hgb 10.3 L Hct 31.9 L MCV 82.0 MCH 26.6 L MCHC 32.4 L RDW 13.6 Plt Count 245 MPV 7.5 Neut % (Auto) 86.1 H Lymph % (Auto) 7.7 L [place] % (Auto) 5.7 Eos % (Auto) 0.3 Baso % (Auto) 0.2 Neut # (Auto) 14.2 H Lymph # (Auto) 1.3 [place] # (Auto) 0.9 H Eos # (Auto) 0.1 Baso # (Auto) 0.0 Neutrophils % (Manual) 78 H Band Neutrophils % 2 Lymphocytes % (Manual) 12 L Reactive Lymphs % 1 H Monocytes % (Manual) 7 Nucleated RBC % 1 H Platelet Estimate Normal Hypochromasia (manual) Poikilocytosis (manual PT 11.5 INR 1.1 APTT 28 Sodium 136 Potassium 4.1 Chloride 105 Carbon Dioxide 25 Anion Gap 11 BUN 12 Creatinine 0.6 L Est GFR ( Amer) > 60 Est GFR (Non-Af Amer) > 60 Random Glucose 107 H Calcium 8.2 L Total Bilirubin AST ALT Alkaline Phosphatase Total Protein Albumin Globulin Albumin/Globulin Ratio Lipase Urine Color Urine Clarity Urine pH Ur Specific [place] Urine Protein Urine Glucose (UA) Urine Ketones Urine Blood Urine Nitrate Urine Bilirubin Urine Urobilinogen Ur Leukocyte Esterase Urine WBC (Auto) Urine RBC (Auto) Ur Squamous Epith Cells Urine Bacteria Urine HCG, Qual Assessment & Plan - Assessment and Plan (Free Text) Assessment: IMP: L renal colic L ureteral calculus L renal calculus Bilat recurrent uroltihiasis full note tbd YS - Date & Time Date: 09/21/18 Time: 11:00
--- NOTE | 2018-09-21 11:37 | PCM.SURG1 ---
Surgeon's Initial Post Op Note - Surgeon's Notes Surgeon: Hodan La [employer] Analyst: none Type of Anesthesia: IV Sedation Pre-Operative Diagnosis: L renal colic,. L ureteral calculus Operative Findings: same, cystitis, L hydroureteronephrosis Post-Operative Diagnosis: same Operation Performed: cysto,. L rtg pyelogram. Insertion of L ureteral stent. EUA Specimen/Specimens Removed: urine Estimated Blood Loss: EBL {In ML}: 0 Blood Products Given: N/A Date of Surgery/Procedure: 09/21/18 Time of Surgery/Procedure: 11:37
[2018-09-21] MEDS ORDERED: Lactated Ringer's 1,000 ML IV ONE ×3 (11:40→11:55)
--- NOTE | 2018-09-21 12:07 | RAD ---
Date of service: 09/21/2018 PROCEDURE: Intraoperative Fluoroscopy. HISTORY: LEFT URETERAL CALCULUS FINDINGS: Fluoroscopic assistance was provided. Fluoroscopy time = 26.8 sec. Radiation dose = 0.58673 mGy-cm. Please refer to the operative report from [facility].
[2018-09-21] MEDS ORDERED: Imipenem/Cilastatin 500 MG in Dextrose 5% In Water 100 ML IVPB SCH (14:30)
--- NOTE | 2018-09-21 16:16 | CARD ---
APPROVED REPORT Date of service: 09/20/2018 EKG Measurement Heart [id number] <Conclusion> Normal sinus rhythm Normal ECG
[2018-09-21 17:30] VITALS: RESP 20
[2018-09-21] MEDS: Morphine 4 MG/ML VIAL IVP PRN ×2 (18:23→22:21)
[2018-09-22] MEDS: Morphine 4 MG/ML VIAL IVP PRN ×5 (02:24→20:43)
--- NOTE | 2018-09-22 04:11 | CON ---
DATE: 09/21/2018 UROLOGY CONSULTATION UROLOGY CONSULT REQUESTED BY: Dr. Frye. UROLOGY CONSULT FILLED BY: Erica La MD REASON FOR CONSULTATION: Left renal colic. HISTORY OF PRESENT ILLNESS: Patient presented with a 1-to 2-day history of left flank pain. Patient had severe left flank pain. She required parenteral analgesics. Patient also had nausea. No fever. No hematuria. Patient was found to have leukocytosis. Patient has a history of previous urolithiasis. She reports that she had previous laser treatment for her stone while in another state in the [facility]. Patient is uncertain of stone analysis. She is uncertain which side the stone . The patient is otherwise well. No history of hypertension, diabetes, pneumonia, asthma, tuberculosis. PAST MEDICAL HISTORY: Labor and delivery x2. SOCIAL HISTORY: Patient does not smoke. 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 Patient lives with her two children. Patient has had persistent pain. She has required analgesics since admitted from the emergency room. PHYSICAL EXAMINATION: GENERAL: Patient is well-developed, well-nourished adult female. ABDOMEN: Soft. Nontender and nondistended. No mass or organomegaly. BACK: Mild left CVA tenderness. LABORATORY DATA: Reviewed. Blood test and CAT scan reviewed. CAT scan revealed an obstructing distal ureteral stone more than 6 mm in size. There is additionally a left upper pole renal stone. There was also a tiny right renal stone as well as a 2 mm left lower pole stone. IMPRESSION: A 27-year-old female with history of previous urolithiasis, now with recurrent bilateral urolithiasis. Patient has renal colic secondary to distal ureteral stone. I explained to the patient the findings and the options of therapy. Options include further observation with hope of stone passage. Possible cystoscopy, stent insertion, possible ureteroscopy and laser lithotripsy. Nature of the procedure including risks, benefits, and alternatives have been explained to the patient. Patient prefers to have cystoscopy and stent insertion. The temporary nature of the stent including need for stent removal and the stone removal have been explained as well. Erica La MD cc: Dr. Frye [facility] # [id number]
--- NOTE | 2018-09-22 04:52 | OP ---
PROCEDURE DATE: 09/21/2018 PREOPERATIVE DIAGNOSES: Left renal colic. Left ureteral calculus. Renal calculi. POSTOPERATIVE DIAGNOSES: Left renal colic. Left ureteral calculus. Renal calculi. Left hydronephrosis. Cystitis. PROCEDURE: Cystoscopy, left retrograde pyelogram, infection of left ureteral stent. SURGEON: Erica La MD INDICATIONS: Patient was placed on lithotomy position. Genitalia prepped and draped sterilely. Anesthesia was provided by the anesthesiologist. A 22-Wolof cystoscope sheath was introduced through the obturator. Urine was sent for bacteriologic examination. Bladder was inspected. There was diffuse moderate cystitis including folliculitis. There was no bladder tumor. There was no bladder stone. The ureteral orifices were normal in position and shape. A 0.035-inch guidewire was inserted into the ureteral orifice, was passed up to the level of the kidney. An open-ended catheter was inserted over the guidewire. Iodinated contrast dye was instilled. The retrograde pyelogram demonstrated mild hydroureteronephrosis, now to the level of the distal ureter. The guidewire was reinserted. A 6-Wolof multilength stent was inserted over the guidewire. Proper stent position was confirmed with fluoroscopy and endoscopy. The guidewire was removed. Stent was left in place. The bladder was then drained. Cystoscope and sheath were removed. Exam under anesthesia was performed. There was no abnormal pelvic mass fixation or induration. There was no adnexal mass. Patient tolerated the procedure without complication. Erica La MD
[2018-09-22] MEDS: Sodium Chloride 0.9% 1,000 ML IV SCH (05:49)
--- NOTE | 2018-09-22 06:59 | CP.PCM.PN ---
<Zak Dey - Last Filed: 09/22/18 15:30> Subjective - Date & Time of Evaluation Date of Evaluation: 09/22/18 Time of Evaluation: 09:00 - Subjective Subjective: PGY-[address] Audi Moore Patient is seen and examined at bedside. Patient continues to complain of Left LQ pain and flank pain. Patient states IV morphine keeps the pain under control for 3 hours, but pain comes back again. Patient denies nausea, vomiting or any urinary symptoms. Patient had blood in urine and burning/pain when urinating after procedure yesterday, but states these symptoms have resolved. Patient is urinating constantly. Tolerating clear liquid diet. Patient denies other complaints. no fevers, chills, chest pain, SOB, diarrhea, constipation, leg pain or swelling. Objective - Vital Signs/Intake and Output Vital Signs (last 24 hours): Temp Pulse Resp BP Pulse Ox 99.0 F 83 20 110/70 96 09/22/18 00:00 09/22/18 00:00 09/22/18 00:00 09/22/18 00:00 09/22/18 00:00 Intake and Output: 09/21/18 09/22/18 18:59 06:59 Intake Total 1500 Output Total 250 Balance -250 1500 - Medications Medications: Current Medications Acetaminophen (Tylenol 325mg Tab) 650 mg PO Q6 PRN PRN Reason: Pain, moderate (4-7) Sodium Chloride (Sodium Chloride 0.9%) 1,000 mls @ 125 mls/hr IV .Q8H TIM Last Admin: 09/22/18 05:49 Dose: 125 mls/hr Imipenem/Cilastatin Sodium 500 (mg/ Sodium Chloride) 100 mls @ 100 mls/hr IVPB Q6H [facility]; Protocol Last Admin: 09/22/18 02:28 Dose: 100 mls/hr Morphine Sulfate (Morphine) 4 mg IVP Q4 PRN PRN Reason: Pain, severe (8-10) Last Admin: 09/22/18 06:24 Dose: 4 mg Ondansetron HCl (Zofran Inj) 4 mg IVP Q6 PRN PRN Reason: Nausea/Vomiting Last Admin: 09/21/18 16:00 Dose: 4 mg Pneumococcal Polyvalent Vaccine (Pneumovax 23 Vaccine) 0.5 ml IM .ONCE ONE Stop: 09/23/18 10:01 - Labs Labs: 09/21/18 03:56 09/21/18 03:56 PT 11.5 SECONDS (9.7-12.2) 09/20/18 20:40 INR 1.1 09/20/18 20:40 APTT 28 SECONDS (21-34) 09/20/18 20:40 - Constitutional Appears: Non-toxic, No Acute Distress - Head Exam Head Exam: ATRAUMATIC, NORMAL INSPECTION, NORMOCEPHALIC - Eye Exam Eye Exam: EOMI, Normal appearance - ENT Exam ENT Exam: Mucous Membranes Moist, Normal Exam - Neck Exam Neck Exam: Normal Inspection - Respiratory Exam Respiratory Exam: Clear to Ausculation Bilateral, NORMAL BREATHING PATTERN. absent: Rales, Rhonchi, Wheezes - Cardiovascular Exam Cardiovascular Exam: Tachycardia, REGULAR RHYTHM, +S1, +S2 - GI/Abdominal Exam GI & Abdominal Exam: Soft, Tenderness (left lower and left upper quadrant tenderness to palpation ), Normal Bowel Sounds. absent: Distended - Extremities Exam Extremities Exam: Full ROM, Normal Capillary Refill, Normal Inspection. absent: Pedal Edema, Tenderness - Back Exam Back Exam: CVA tenderness (L), Full ROM, paraspinal tenderness (left lower back area tenderness to palpation ) - Neurological Exam Neurological Exam: Alert, Awake, Oriented x3 - Psychiatric Exam Psychiatric exam: Normal Affect, Normal Mood - Skin Skin Exam: Dry, Intact, Normal Color, Warm Assessment and Plan - Assessment and Plan (Free Text) Plan: Nephrolithiasis with hydronephrosis r/o UTI -CT: multiple calculi in kidneys B/L. 1cm calculi in superior left kidnet; left sided hyronephrosis and hydroureter. 5x6mm of left distal ureter -abd xray: nonspecific calcifications seen the inferior left hemipelvis soft t issues. Prominent retained fecal material scattered throughout the right hemicolon, moderate otherwise. No bowel obstruction appreciable. - cxray -mild to moderate venous congestion, patchy increased marking, small hiatial hernia. Nodular density lower lung bases mayrepresenting nipple shadows - EKG - NSR - urine cx - no growth - final report - Urine cx, catheterized - no growth - final report -Uro consult, Dr. Erica La - 09/21 - cystoscopy with stent insertion - f/u recs - IVF, NS @125/hr - Zofran prn gram negative bacteremia - blood cx - gram negative pérez x 1 bottle - pending official report - no growth in 24 hour x 1 bottle - White count decreasing from 16 to 11.1, afebrile - Primaxin IVPB 500mg Q6H Left Lower quadrant and left flank pain 2/2 renal colic - Morphine 4mg PRN for severe pain (7-10) - Toradol 30 IVP Q6 PRN for moderate pain (4-7) - continue to monitor Hx of chest pain - patient no currently complaining of chest pain. - EKG - NSR - chest xray -mild to moderate venous congestion, patchy increased marking, small hiatial hernia. Nodular density lower lung bases mayrepresenting nipple shadows - cont to monitor Ppx -DVT ppx, SCDs -GI ppx not indicated -Clear Liquid diet - consider ADAT - NS @125 cc/hr Plan discussed with Dr Audi Dey, PGY-1 <Audi Moore H - Last Filed: 09/22/18 16:07> Objective - Vital Signs/Intake and Output Vital Signs (last 24 hours): Temp Pulse Resp BP Pulse Ox 98.6 F 74 20 117/79 98 09/22/18 07:59 09/22/18 07:59 09/22/18 07:59 09/22/18 07:59 09/22/18 07:59 Intake and Output: 09/22/18 09/22/18 06:59 18:59 Intake Total 1500 1500 Output Total 850 1000 Balance 650 500 - Medications Medications: Current Medications Sodium Chloride (Sodium Chloride 0.9%) 1,000 mls @ 125 mls/hr IV .Q8H [facility] Last Admin: 09/22/18 05:49 Dose: 125 mls/hr Imipenem/Cilastatin Sodium 500 (mg/ Sodium Chloride) 100 mls @ 100 mls/hr IVPB Q6H [facility]; Protocol Last Admin: 09/22/18 14:13 Dose: 100 mls/hr Ketorolac Tromethamine (Toradol) 30 mg IVP Q6 PRN PRN Reason: Pain, moderate (4-7) Morphine Sulfate (Morphine) 4 mg IVP Q4 PRN PRN Reason: Pain, severe (8-10) Last Admin: 09/22/18 15:13 Dose: 4 mg Ondansetron HCl (Zofran Inj) 4 mg IVP Q6 PRN PRN Reason: Nausea/Vomiting Last Admin: 09/21/18 16:00 Dose: 4 mg Pneumococcal Polyvalent Vaccine (Pneumovax 23 Vaccine) 0.5 ml IM .ONCE ONE Stop: 09/23/18 10:01 Tamsulosin HCl (Flomax) 0.4 mg PO DAILY TIM Last Admin: 09/22/18 09:59 Dose: 0.4 mg - Labs Labs: 09/22/18 11:09 09/22/18 11:09 PT 11.5 SECONDS (9.7-12.2) 09/20/18 20:40 INR 1.1 09/20/18 20:40 APTT 28 SECONDS (21-34) 09/20/18 20:40 Attending/Attestation - Attestation I have personally seen and examined this patient.: Yes I have fully participated in the care of the patient.: Yes I have reviewed all pertinent clinical information, including history, physical exam and plan: Yes Notes (Text): 09/22/18 15:59 Medical attending: Patient was seen and examined by me. Agree with the above note by the resident The patient was not in any acute distress when I came and saw her. She reports the pain is still present - however no longer having abdominal area pain. Only has pain in the L flank area. There is one gram negative positive growth - the abx were changed to IV primaxin. We are still pending on this to return Audi Moore
[2018-09-22 11:19] LABS: BASO % 0.2 % (0.0-2.0); EOS # 0.1 K/uL (0.0-0.7); EOS % 0.9 % (0.0-4.0); HEMOGLOBIN 9.4 g/dL (11.0-16.0); LYMPH # 1.7 K/uL (1.0-4.3); LYMPH % 15.4 % (20.0-40.0); MEAN CORPUSCULAR HEMOGLOBIN 27.2 pg (27.0-31.0); MEAN CORPUSCULAR HGB CONC 32.8 g/dL (33.0-37.0); MEAN PLATELET VOLUME 7.5 fL (7.2-11.7); MONO # 1.4 K/uL (0.0-0.8); MONO % 12.4 % (0.0-10.0); NEUT # 7.9 K/uL (1.8-7.0); NEUT % 71.1 % (50.0-75.0); RBC 3.47 Mil/uL (3.80-5.20); RED CELL DISTRIBUTION WIDTH 13.7 % (11.5-14.5); WHITE BLOOD COUNT 11.1 K/uL (4.8-10.8)
[2018-09-22 12:16] LABS: ALT/SGPT 30 U/L (9-52); AST/SGOT 36 U/L (14-36); BLOOD UREA NITROGEN 3 mg/dL (7-17); CALCIUM 8.2 mg/dl (8.6-10.4); GFR NON-AFRICAN AMERICAN > 60
--- NOTE | 2018-09-22 15:02 | RAD ---
Date of service: 09/22/2018 HISTORY: left urithral stent insertion COMPARISON: And 09/20/2018 abdomen with bilateral oblique views. Abdomen and pelvis 09/20/2018 CT FINDINGS: BOWEL: Normal. No obstruction. No free air. BONES: Normal. OTHER FINDINGS: The approximately 5 x 10 mm oval calcification left upper abdominal quadrant between the left 12th and 11th rib is similar in appearance and compatible with a left upper renal pole calculus the largest apparent left hemipelvic calcification. Maintains proximity with the distal left ureteral stent coil inferred in the bladder. This calculus is estimated to be approximately 6 mm. A 1 mm calculus is seen inferior to this and a 2 to 3 mm calculus is seen left lateral to the distal left ureteral stent inferred as probable phleboliths. No additional definitive calculi along the left ureteral stent course is seen. Additional CT reference of left renal parenchymal and right renal nonobstructing calculi are noted. The largest calculus in the left upper abdominal quadrant is compatible with that in the upper left dilated collecting system on CT. IMPRESSION: Interval left ureteral stent insertion-the proximal coil estimated to be in the left intrarenal pelvis. Cephalad to this is an apparent 9 to 10 mm calculus in left upper renal pole collecting system. This projects just left lateral to the left 12 posterior rib. Distal left ureteral coil in bladder with the 2nd largest calculus inferred in the bladder left ureteral vesicle junction. Other findings as above.
--- NOTE | 2018-09-22 15:03 | RAD ---
Date of service: 09/22/2018 HISTORY: left urithral stent insertion COMPARISON: 09/20/2018 the abdomen with bilateral oblique views. FINDINGS: BOWEL: No bowel obstruction appreciated. Although not mention of a prior study moderate right stool retention is hree noted. BONES: Normal. OTHER FINDINGS: Proximal left ureteral stent is visualized. Above the proximal left ureteral stent coil which is estimated to be in the left intra or extra renal pelvis is a 9 to 10 mm calculus inferred as within the left upper renal collecting system as per the earlier CT abdomen and pelvic study from 09/20/2018. IMPRESSION: The proximal left ureteral core all and the calculus cephalad to it are as noted above.
[2018-09-23] MEDS ORDERED: Pneumococcal 23-Valent Vaccine IM ONE (10:00)
[2018-09-23 11:51] LABS: BASO % 0.5 % (0.0-2.0); EOS # 0.1 K/uL (0.0-0.7); EOS % 1.3 % (0.0-4.0); HEMOGLOBIN 10.8 g/dL (11.0-16.0); LYMPH # 1.3 K/uL (1.0-4.3); LYMPH % 14.6 % (20.0-40.0); MEAN CELL VOLUME 82.7 fL (81.0-99.0); MEAN CORPUSCULAR HEMOGLOBIN 27.3 pg (27.0-31.0); MEAN PLATELET VOLUME 7.7 fL (7.2-11.7); MONO # 1.2 K/uL (0.0-0.8); MONO % 13.1 % (0.0-10.0); NEUT # 6.2 K/uL (1.8-7.0); NEUT % 70.5 % (50.0-75.0); RBC 3.94 Mil/uL (3.80-5.20); RED CELL DISTRIBUTION WIDTH 13.7 % (11.5-14.5); WHITE BLOOD COUNT 8.8 K/uL (4.8-10.8)
[2018-09-23 12:11] LABS: ALBUMIN 3.7 g/dL (3.5-5.0); ALT/SGPT 28 U/L (9-52); AST/SGOT 25 U/L (14-36); BLOOD UREA NITROGEN 7 mg/dL (7-17); CALCIUM 8.8 mg/dl (8.6-10.4); GFR NON-AFRICAN AMERICAN > 60
[2018-09-23] MEDS: Ciprofloxacin 400mg/200ml D5W 400 MG/200 ML BAG IVPB SCH (13:15)
[2018-09-23] MEDS: Morphine 4 MG/ML VIAL IVP PRN ×2 (14:04→21:10)
--- NOTE | 2018-09-23 16:05 | CP.PCM.PN ---
<Isis Marquez - Last Filed: 09/23/18 16:15> Subjective - Date & Time of Evaluation Date of Evaluation: 09/23/18 Time of Evaluation: 11:15 - Subjective Subjective: PGY-1 Medicine Progress Note for Dr. Moore Patient was seen and examined today at bedside in no acute distress. Nurse reports no overnight events. Patient requested more pain medication because she was refusing the high dose morphine as it sedated more than she would like. She started her period tomorrow, but the period cramping is separate from her post- op cramping. She still hasn't been able to have a BM; she started solid diet dinner last night. Denies chest pain, shortness of breath, headache, nausea, vomiting. Objective - Vital Signs/Intake and Output Vital Signs (last 24 hours): Temp Pulse Resp BP Pulse Ox 98.1 F 81 20 148/104 H 98 09/23/18 07:00 09/23/18 07:00 09/23/18 07:00 09/23/18 07:00 09/23/18 07:00 Intake and Output: 09/23/18 09/23/18 06:59 18:59 Intake Total 1890 600 Balance 1890 600 - Medications Medications: Current Medications Alprazolam (Xanax) 0.5 mg PO BID PRN PRN Reason: Anxiety Last Admin: 09/23/18 12:15 Dose: 0.5 mg Ciprofloxacin (Cipro 400mg/200ml Dsw) 400 mg in 200 mls @ 133 mls/hr IVPB Q12H [facility]; Protocol Last Admin: 09/23/18 13:15 Dose: 133 mls/hr Ketorolac Tromethamine (Toradol) 30 mg IVP Q6 PRN PRN Reason: Pain, moderate (4-7) Last Admin: 09/23/18 03:37 Dose: 30 mg Morphine Sulfate (Morphine) 1 mg IVP Q4 PRN PRN Reason: Pain, severe (8-10) Last Admin: 09/23/18 14:04 Dose: 1 mg Ondansetron HCl (Zofran Inj) 4 mg IVP Q6 PRN PRN Reason: Nausea/Vomiting Last Admin: 09/21/18 16:00 Dose: 4 mg Tamsulosin HCl (Flomax) 0.4 mg PO DAILY TIM Last Admin: 09/23/18 09:04 Dose: 0.4 mg - Labs Labs: 09/23/18 11:32 09/23/18 11:32 PT 11.5 SECONDS (9.7-12.2) 09/20/18 20:40 INR 1.1 09/20/18 20:40 APTT 28 SECONDS (21-34) 09/20/18 20:40 - Constitutional Appears: Non-toxic, No Acute Distress - Head Exam Head Exam: ATRAUMATIC, NORMOCEPHALIC - Eye Exam Eye Exam: EOMI, Normal appearance - ENT Exam ENT Exam: Mucous Membranes Moist Additional comments: nose ring - Respiratory Exam Respiratory Exam: Clear to Ausculation Bilateral, NORMAL BREATHING PATTERN. absent: Rales, Rhonchi, Wheezes - Cardiovascular Exam Cardiovascular Exam: REGULAR RHYTHM, +S1, +S2. absent: Gallop, Rubs, Murmur - GI/Abdominal Exam GI & Abdominal Exam: Soft, Tenderness, Normal Bowel Sounds. absent: Distended Additional comments: TTP along L abdomen without skin changes TTP over suprapubic region - Extremities Exam Extremities Exam: Normal Capillary Refill. absent: Calf Tenderness, Pedal Edema Additional comments: IV access in R AC - Back Exam Back Exam: absent: CVA tenderness (L), CVA tenderness (R), paraspinal tenderness - Neurological Exam Neurological Exam: Alert, Awake, Normal Gait, Oriented x3 - Psychiatric Exam Psychiatric exam: Normal Affect, Normal Mood - Skin Skin Exam: Dry, Intact, Normal Color, Warm Assessment and Plan - Assessment and Plan (Free Text) Plan: Nephrolithiasis with hydronephrosis r/o UTI -CT: multiple calculi in kidneys B/L. 1cm calculi in superior left kidnet; left sided hyronephrosis and hydroureter. 5x6mm of left distal ureter -abd xray: nonspecific calcifications seen the inferior left hemipelvis soft tissues. Prominent retained fecal material scattered throughout the right hemicolon, moderate otherwise. No bowel obstruction appreciable. - cxray -mild to moderate venous congestion, patchy increased marking, small hiatial hernia. Nodular density lower lung bases mayrepresenting nipple shadows - EKG - NSR - urine cx - no growth - final report - Urine cx, catheterized - no growth - final report -Uro consult, Dr. Erica La - 09/21 - cystoscopy with stent insertion - f/u recs - IVF, NS @125/hr - Zofran prn - Xanax 0.5 po bid prn gram negative bacteremia - blood cx x 1 bottle - Proteus Mirabilis - no growth in 24 hour x 1 bottle - White count downtrending, afebrile - Primaxin IVPB 500mg Q6H () - Cipro 400 IVPB q12 (started 09/23) - f/u repeat Blood Cx Left Lower quadrant and left flank pain 2/2 renal colic - Morphine 1mg PRN for severe pain (7-10) - Toradol 30 IVP Q6 PRN for moderate pain (4-7) - continue to monitor Hx of chest pain - patient no currently complaining of chest pain. - EKG - NSR - chest xray -mild to moderate venous congestion, patchy increased marking, small hiatial hernia. Nodular density lower lung bases mayrepresenting nipple shadows - cont to monitor Ppx -DVT ppx, SCDs -GI ppx not indicated -Regular Diet - NS @125 cc/hr d/w Dr. Teresa Marquez PGY-1 <Audi Moore H - Last Filed: 09/23/18 19:11> Objective - Vital Signs/Intake and Output Vital Signs (last 24 hours): Temp Pulse Resp BP Pulse Ox 98.6 F 64 20 131/92 H 98 09/23/18 16:00 09/23/18 16:00 09/23/18 16:00 09/23/18 16:00 09/23/18 16:00 Intake and Output: 09/23/18 09/24/18 18:59 06:59 Intake Total 600 Balance 600 - Medications Medications: Current Medications Alprazolam (Xanax) 0.5 mg PO BID PRN PRN Reason: Anxiety Last Admin: 09/23/18 12:15 Dose: 0.5 mg Ciprofloxacin (Cipro 400mg/200ml Dsw) 400 mg in 200 mls @ 133 mls/hr IVPB Q12H [facility]; Protocol Last Admin: 09/23/18 13:15 Dose: 133 mls/hr Ketorolac Tromethamine (Toradol) 30 mg IVP Q6 PRN PRN Reason: Pain, moderate (4-7) Last Admin: 09/23/18 03:37 Dose: 30 mg Morphine Sulfate (Morphine) 1 mg IVP Q4 PRN PRN Reason: Pain, severe (8-10) Last Admin: 09/23/18 14:04 Dose: 1 mg Ondansetron HCl (Zofran Inj) 4 mg IVP Q6 PRN PRN Reason: Nausea/Vomiting Last Admin: 09/21/18 16:00 Dose: 4 mg Tamsulosin HCl (Flomax) 0.4 mg PO DAILY TIM Last Admin: 09/23/18 09:04 Dose: 0.4 mg - Labs Labs: 09/23/18 11:32 09/23/18 11:32 PT 11.5 SECONDS (9.7-12.2) 09/20/18 20:40 INR 1.1 09/20/18 20:40 APTT 28 SECONDS (21-34) 09/20/18 20:40 Attending/Attestation - Attestation I have personally seen and examined this patient.: Yes I have fully participated in the care of the patient.: Yes I have reviewed all pertinent clinical information, including history, physical exam and plan: Yes Notes (Text): 09/23/18 19:07 Medical attending: Patient was seen and examined by me. Reviewed the above note by the certified medical coder and agree with the above note. The patient was not in any acute distress. Her family medmber was at bedside today. Patient reported feeling better however still has pain L flank like yesterday The patient blood culture returned showing + Proteus growth. The cultures were sensitive to Cipro and so we changed the Primaxin over to that. It is possible if she is feeling well that she can be discharged tommorow provided that the repeat culture is ok Audi Moore
[2018-09-24] MEDS: Ciprofloxacin 400mg/200ml D5W 400 MG/200 ML BAG IVPB SCH ×2 (00:28→12:02)
[2018-09-24 01:05] VITALS: TEMP 98.1
[2018-09-24 06:49] LABS: BASO % 0.8 % (0.0-2.0); EOS # 0.1 K/uL (0.0-0.7); EOS % 2.8 % (0.0-4.0); HEMOGLOBIN 10.9 g/dL (11.0-16.0); LYMPH # 1.5 K/uL (1.0-4.3); MEAN CELL VOLUME 82.3 fL (81.0-99.0); MEAN CORPUSCULAR HEMOGLOBIN 27.4 pg (27.0-31.0); MEAN CORPUSCULAR HGB CONC 33.3 g/dL (33.0-37.0); MEAN PLATELET VOLUME 7.5 fL (7.2-11.7); MONO # 0.9 K/uL (0.0-0.8); MONO % 17.9 % (0.0-10.0); NEUT # 2.7 K/uL (1.8-7.0); NEUT % 50.5 % (50.0-75.0); NRBC % 0.1 % (0.0-2.0); RBC 3.97 Mil/uL (3.80-5.20); RED CELL DISTRIBUTION WIDTH 13.4 % (11.5-14.5); WHITE BLOOD COUNT 5.3 K/uL (4.8-10.8)
[2018-09-24 07:09] LABS: ALBUMIN 3.6 g/dL (3.5-5.0); ALT/SGPT 25 U/L (9-52); AST/SGOT 18 U/L (14-36); BLOOD UREA NITROGEN 8 mg/dL (7-17); CALCIUM 8.6 mg/dl (8.6-10.4); GFR NON-AFRICAN AMERICAN > 60
[2018-09-24] MEDS: Morphine 4 MG/ML VIAL IVP PRN ×2 (07:40→13:45)
[2018-09-24 07:43] VITALS: BP 142/98; PULSE 84; O2SAT 100
--- NOTE | 2018-09-24 14:38 | CP.PCM.DIS ---
<Zak Dey - Last Filed: 09/24/18 20:33> Provider - Provider Date of Admission: 09/20/18 20:07 Attending physician: Toi Frye MD Consults: 09/20/18 18:36 Physician Consult Stat Comment: left sided kidney stone, hydronephrosis Consulting Provider: Erica La Consulting Physician: Erica La Reason for Consult: urology 09/20/18 20:05 Urology Consult Stat Comment: renal colic, obstructive uropathy Consulting Provider: Erica La Consulting Physician: Erica La Reason for Consult: obstructive uropathy Time Spent in preparation of Discharge (in minutes): 180 Diagnosis - Discharge Diagnosis (1) Renal colic on left side Status: Acute (2) Kidney stone on left side Status: Acute (3) Hydronephrosis, left Status: Acute (4) Bacteremia Status: Acute (5) Chest wall pain Status: Chronic Hospital Course - Lab Results Lab Results: Micro Results 09/23/18 12:20 Blood Blood Culture - Preliminary NO GROWTH AFTER 24 HOURS 09/23/18 12:20 Blood Blood Culture - Preliminary NO GROWTH AFTER 24 HOURS 09/20/18 18:10 Blood Blood Culture - Preliminary NO GROWTH AFTER 3 DAYS 09/20/18 18:10 Blood Blood Culture - Final Proteus Mirabilis 09/20/18 18:10 Blood Gram Stain - Final 09/21/18 12:39 Urine,Catheterized Urine Culture - Final No Growth (<1,000 CFU/ML) 09/21/18 09:09 Urine Urine Culture - Final No Growth (<1,000 CFU/ML) Most Recent Lab Values WBC 5.3 K/uL (4.8-10.8) 09/24/18 06:32 RBC 3.97 Mil/uL (3.80-5.20) 09/24/18 06:32 Hgb 10.9 g/dL (11.0-16.0) L 09/24/18 06:32 Hct 32.7 % (34.0-47.0) L 09/24/18 06:32 MCV 82.3 fL (81.0-99.0) 09/24/18 06:32 MCH 27.4 pg (27.0-31.0) 09/24/18 06:32 MCHC 33.3 g/dL (33.0-37.0) 09/24/18 06:32 RDW 13.4 % (11.5-14.5) 09/24/18 06:32 Plt Count 311 K/uL (130-400) 09/24/18 06:32 MPV 7.5 fL (7.2-11.7) 09/24/18 06:32 Neut % (Auto) 50.5 % (50.0-75.0) 09/24/18 06:32 Lymph % (Auto) 28.0 % (20.0-40.0) 09/24/18 06:32 [place] % (Auto) 17.9 % (0.0-10.0) H 09/24/18 06:32 Eos % (Auto) 2.8 % (0.0-4.0) 09/24/18 06:32 Baso % (Auto) 0.8 % (0.0-2.0) 09/24/18 06:32 Neut # (Auto) 2.7 K/uL (1.8-7.0) 09/24/18 06:32 Lymph # (Auto) 1.5 K/uL (1.0-4.3) 09/24/18 06:32 [place] # (Auto) 0.9 K/uL (0.0-0.8) H 09/24/18 06:32 Eos # (Auto) 0.1 K/uL (0.0-0.7) 09/24/18 06:32 Baso # (Auto) 0.0 K/uL (0.0-0.2) 09/24/18 06:32 Neutrophils % (Manual) 78 % (50-75) H 09/21/18 03:56 Band Neutrophils % 2 % (0-2) 09/21/18 03:56 Lymphocytes % (Manual) 12 % (20-40) L 09/21/18 03:56 Reactive Lymphs % 1 % (0-0) H 09/21/18 03:56 Monocytes % (Manual) 7 % (0-10) 09/21/18 03:56 Nucleated RBC % 1 % (0-0) H 09/21/18 03:56 Platelet Estimate Normal (NORMAL) 09/21/18 03:56 Hypochromasia (manual) Slight 09/20/18 16:10 Poikilocytosis (manual Slight 09/20/18 16:10 PT 11.5 SECONDS (9.7-12.2) 09/20/18 20:40 INR 1.1 09/20/18 20:40 APTT 28 SECONDS (21-34) 09/20/18 20:40 Sodium 137 mmol/L (132-148) 09/24/18 06:32 Potassium 4.1 mmol/L (3.6-5.2) 09/24/18 06:32 Chloride 104 mmol/L (98-107) 09/24/18 06:32 Carbon Dioxide 27 mmol/L (22-30) 09/24/18 06:32 Anion Gap 10 (10-20) 09/24/18 06:32 BUN 8 mg/dL (7-17) 09/24/18 06:32 Creatinine 0.6 mg/dL (0.7-1.2) L 09/24/18 06:32 Est GFR ( Amer) > 60 09/24/18 06:32 Est GFR (Non-Af Amer) > 60 09/24/18 06:32 Random Glucose 86 mg/dL (65-105) 09/24/18 06:32 Calcium 8.6 mg/dl (8.6-10.4) 09/24/18 06:32 Phosphorus 2.7 mg/dL (2.5-4.5) 09/23/18 11:32 Magnesium 2.0 mg/dL (1.6-2.3) 09/23/18 11:32 Total Bilirubin 0.3 mg/dL (0.2-1.3) 09/24/18 06:32 AST 18 U/L (14-36) 09/24/18 06:32 ALT 25 U/L (9-52) 09/24/18 06:32 Alkaline Phosphatase 64 U/L (38-126) 09/24/18 06:32 Total Protein 7.1 g/dL (6.3-8.3) 09/24/18 06:32 Albumin 3.6 g/dL (3.5-5.0) 09/24/18 06:32 Globulin 3.5 gm/dL (2.2-3.9) 09/24/18 06:32 Albumin/Globulin Ratio 1.0 (1.0-2.1) 09/24/18 06:32 Lipase 52 U/L (23-300) 09/20/18 16:10 Urine Color Yellow (YELLOW) 09/20/18 16:10 Urine Clarity Clear (Clear) 09/20/18 16:10 Urine pH 5.0 (5.0-8.0) 09/20/18 16:10 Ur Specific [place] 1.018 (1.003-1.030) 09/20/18 16:10 Urine Protein Negative mg/dL (NEGATIVE) 09/20/18 16:10 Urine Glucose (UA) Normal mg/dL (Normal) 09/20/18 16:10 Urine Ketones Negative mg/dL (NEGATIVE) 09/20/18 16:10 Urine Blood 1+ (NEGATIVE) H 09/20/18 16:10 Urine Nitrate Negative (NEGATIVE) 09/20/18 16:10 Urine Bilirubin Negative (NEGATIVE) 09/20/18 16:10 Urine Urobilinogen Normal mg/dL (0.2-1.0) 09/20/18 16:10 Ur Leukocyte Esterase 2+ Eder/uL (Negative) H 09/20/18 16:10 Urine WBC (Auto) 86 /hpf (0-5) H 09/20/18 16:10 Urine RBC (Auto) 5 /hpf (0-3) H 09/20/18 16:10 Ur Squamous Epith Cells < 1 /hpf (0-5) 09/20/18 16:10 Urine Bacteria Occ (<OCC) H 09/20/18 16:10 Urine HCG, Qual Negative (NEGATIVE) 09/20/18 16:10 - Hospital Course Hospital Course: On admission: Patient is a 27 year old female with pmhx of kidney stones presenting to ED with complaints of acute left sided flank pain that awoke her from her sleep this morning. She reports the pain is sharp and localized to the left lower flank and low back. Patient reports symptoms consistent with previous kidney stone episodes. Pt reports dysuria, increased frequency in urination and suprapubic tenderness for 2 weeks. Denies fevers, nausea, vomiting. Pt reports she was recently here on 09/12/18 for evaluation of left breast and chest pain. Pt reports pain was throbbing in nature, localized to her left upper breast, tender to touch. Pt reports similar pains before related to hormonal cycles of her period and cystic breast, however this was more intense. Pt reports moderate improvement in symptoms now. Denies radiating pain, SOB. On hospitalization: Patient admitted to hospital for treatment of nephrolithiasis. abdomen/pelvis CT shows multiple calculi in kidneys B/L. 1cm calculi in superior left kidnet; left sided hyronephrosis and hydroureter. 5x6mm of left distal ureter. Abdominal x ray shows nonspecific calcifications seen the inferior left hemipelvis soft tissues. Prominent retained fecal material scattered throughout the right hemico tammie, moderate otherwise. No bowel obstruction appreciable. chest xray shows mild to moderate venous congestion, patchy increased marking, small hiatial hernia. EKG showing NSR. Urologist Dr Erica La consulted for cystoscopy, done on 09/21, with stent insertion. Urine culture show no growth. blood culture x 1 bottle showed proteus mirabilis, patient treated with rocephin initially, then switched to primaxin and finally switched to cipro 400mg IVPB Q12hrs. White count down trended during hospitalization course, patient remained afebrile. for renal colic pain, patient was treated with Morphine and toradol. for hx of chest pain, patient had no complains during hispitalization and chest xray as well as ekg show no remarkable findings as mentioned above. Patient placed on SCDs for DVT ppx and on NS @ 125cc/hr. Patient received zofran prn for nausea and xanax prn for anxiety. On discharge: The following instruction were given to patient upon discharge Patient is stable to discharge as per Dr Moore. Patient is given a prescription for antibiotic called Levaquin 750mg to take one tablet by mouth once a day for 14 days. Patient is given prescription written by Dr La for Percocet and Flomax. Patient is given prescription for Xanax 0.5mg per mouth three times a day as needed for anxiety, disp 12. Patient is given a script to return to work on 09/25/2018. Please follow up with Dr Urologist Dr Xie and/or Erica La. Please call his office this week for follow up for your treatment of kidney stones. If your symptoms recur or worsen, please return to the ER This is a brief summary of patient's hospitalization course. For more information, please refer to patient's EMR. - Date & Time of H&P Date of H&P: 09/20/18 Time of H&P: 20:10 Discharge Exam - Head Exam Head Exam: ATRAUMATIC, NORMOCEPHALIC - Eye Exam Eye Exam: EOMI, Normal appearance - ENT Exam ENT Exam: Mucous Membranes Moist - Neck Exam Neck exam: Full Rom - Respiratory Exam Respiratory Exam: NORMAL BREATHING PATTERN, UNREMARKABLE. absent: Rales, Rhonchi, Wheezes, Respiratory Distress - Cardiovascular Exam Cardiovascular Exam: REGULAR RHYTHM, +S1, +S2 - GI/Abdominal Exam GI & Abdominal Exam: Normal Bowel Sounds, Tenderness (mild tenderness on left lower quadrant). absent: Distended - Extremities Exam Extremities exam: full ROM, normal inspection - Back Exam Back exam: FULL ROM, NORMAL INSPECTION. absent: paraspinal tenderness, tenderness, vertebral tenderness - Neurological Exam Neurological exam: Alert, Oriented x3 - Psychiatric Exam Psychiatric exam: Normal Affect, Normal Mood - Skin Skin Exam: Dry, Intact, Normal Color, Warm Discharge Plan - Discharge Medications Prescriptions: Levofloxacin [Levaquin] 750 mg PO DAILY 14 Days #14 tablet RX: Naproxen [Naprosyn] 1 tab PO BID PRN 14 Days #28 tab PRN Reason: Pain - Follow Up Plan Condition: STABLE Disposition: HOME/ ROUTINE Instructions: Kidney Stones (DC), Levofloxacin (Systemic), Renal Colic (DC), Hydronephrosis, Adult (DC), Naproxen, Urinary Tract Infection in Women (DC) Additional Instructions: Patient is stable to discharge as per Dr Moore Patient is given a prescription for antibiotic called Levaquin 750mg to take one tablet by mouth once a day for 14 days. Patient is given a script to return to work on 09/25/2018 Please follow up with Dr Urologist Dr Xie and/or Erica La. Please call his office this week for follow up for your treatment of kidney stones. If your symptoms recur or worsen, please return to the ER Be well and take care Referrals: Rojas La MD [Staff Provider] - Erica La MD [Staff Provider] - <Audi Moore - Last Filed: 09/25/18 09:42> Provider - Provider Date of Admission: 09/20/18 20:07 Attending physician: Toi Frye MD Consults: 09/20/18 18:36 Physician Consult Stat Comment: left sided kidney stone, hydronephrosis Consulting Provider: Erica La Consulting Physician: Erica La Reason for Consult: urology 09/20/18 20:05 Urology Consult Stat Comment: renal colic, obstructive uropathy Consulting Provider: Erica La Consulting Physician: Erica La Reason for Consult: obstructive uropathy Hospital Course - Lab Results Lab Results: Micro Results 09/20/18 18:10 Blood Blood Culture - Preliminary NO GROWTH AFTER 4 DAYS 09/23/18 12:20 Blood Blood Culture - Preliminary NO GROWTH AFTER 24 HOURS 09/23/18 12:20 Blood Blood Culture - Preliminary NO GROWTH AFTER 24 HOURS 09/20/18 18:10 Blood Blood Culture - Final Proteus Mirabilis 09/20/18 18:10 Blood Gram Stain - Final 09/21/18 12:39 Urine,Catheterized Urine Culture - Final No Growth (<1,000 CFU/ML) 09/21/18 09:09 Urine Urine Culture - Final No Growth (<1,000 CFU/ML) Most Recent Lab Values WBC 5.3 K/uL (4.8-10.8) 09/24/18 06:32 RBC 3.97 Mil/uL (3.80-5.20) 09/24/18 06:32 Hgb 10.9 g/dL (11.0-16.0) L 09/24/18 06:32 Hct 32.7 % (34.0-47.0) L 09/24/18 06:32 MCV 82.3 fL (81.0-99.0) 09/24/18 06:32 MCH 27.4 pg (27.0-31.0) 09/24/18 06:32 MCHC 33.3 g/dL (33.0-37.0) 09/24/18 06:32 RDW 13.4 % (11.5-14.5) 09/24/18 06:32 Plt Count 311 K/uL (130-400) 09/24/18 06:32 MPV 7.5 fL (7.2-11.7) 09/24/18 06:32 Neut % (Auto) 50.5 % (50.0-75.0) 09/24/18 06:32 Lymph % (Auto) 28.0 % (20.0-40.0) 09/24/18 06:32 [place] % (Auto) 17.9 % (0.0-10.0) H 09/24/18 06:32 Eos % (Auto) 2.8 % (0.0-4.0) 09/24/18 06:32 Baso % (Auto) 0.8 % (0.0-2.0) 09/24/18 06:32 Neut # (Auto) 2.7 K/uL (1.8-7.0) 09/24/18 06:32 Lymph # (Auto) 1.5 K/uL (1.0-4.3) 09/24/18 06:32 [place] # (Auto) 0.9 K/uL (0.0-0.8) H 09/24/18 06:32 Eos # (Auto) 0.1 K/uL (0.0-0.7) 09/24/18 06:32 Baso # (Auto) 0.0 K/uL (0.0-0.2) 09/24/18 06:32 Neutrophils % (Manual) 78 % (50-75) H 09/21/18 03:56 Band Neutrophils % 2 % (0-2) 09/21/18 03:56 Lymphocytes % (Manual) 12 % (20-40) L 09/21/18 03:56 Reactive Lymphs % 1 % (0-0) H 09/21/18 03:56 Monocytes % (Manual) 7 % (0-10) 09/21/18 03:56 Nucleated RBC % 1 % (0-0) H 09/21/18 03:56 Platelet Estimate Normal (NORMAL) 09/21/18 03:56 Hypochromasia (manual) Slight 09/20/18 16:10 Poikilocytosis (manual Slight 09/20/18 16:10 PT 11.5 SECONDS (9.7-12.2) 09/20/18 20:40 INR 1.1 09/20/18 20:40 APTT 28 SECONDS (21-34) 09/20/18 20:40 Sodium 137 mmol/L (132-148) 09/24/18 06:32 Potassium 4.1 mmol/L (3.6-5.2) 09/24/18 06:32 Chloride 104 mmol/L (98-107) 09/24/18 06:32 Carbon Dioxide 27 mmol/L (22-30) 09/24/18 06:32 Anion Gap 10 (10-20) 09/24/18 06:32 BUN 8 mg/dL (7-17) 09/24/18 06:32 Creatinine 0.6 mg/dL (0.7-1.2) L 09/24/18 06:32 Est GFR ( Amer) > 60 09/24/18 06:32 Est GFR (Non-Af Amer) > 60 09/24/18 06:32 Random Glucose 86 mg/dL (65-105) 09/24/18 06:32 Calcium 8.6 mg/dl (8.6-10.4) 09/24/18 06:32 Phosphorus 2.7 mg/dL (2.5-4.5) 09/23/18 11:32 Magnesium 2.0 mg/dL (1.6-2.3) 09/23/18 11:32 Total Bilirubin 0.3 mg/dL (0.2-1.3) 09/24/18 06:32 AST 18 U/L (14-36) 09/24/18 06:32 ALT 25 U/L (9-52) 09/24/18 06:32 Alkaline Phosphatase 64 U/L (38-126) 09/24/18 06:32 Total Protein 7.1 g/dL (6.3-8.3) 09/24/18 06:32 Albumin 3.6 g/dL (3.5-5.0) 09/24/18 06:32 Globulin 3.5 gm/dL (2.2-3.9) 09/24/18 06:32 Albumin/Globulin Ratio 1.0 (1.0-2.1) 09/24/18 06:32 Lipase 52 U/L (23-300) 09/20/18 16:10 Urine Color Yellow (YELLOW) 09/20/18 16:10 Urine Clarity Clear (Clear) 09/20/18 16:10 Urine pH 5.0 (5.0-8.0) 09/20/18 16:10 Ur Specific [place] 1.018 (1.003-1.030) 09/20/18 16:10 Urine Protein Negative mg/dL (NEGATIVE) 09/20/18 16:10 Urine Glucose (UA) Normal mg/dL (Normal) 09/20/18 16:10 Urine Ketones Negative mg/dL (NEGATIVE) 09/20/18 16:10 Urine Blood 1+ (NEGATIVE) H 09/20/18 16:10 Urine Nitrate Negative (NEGATIVE) 09/20/18 16:10 Urine Bilirubin Negative (NEGATIVE) 09/20/18 16:10 Urine Urobilinogen Normal mg/dL (0.2-1.0) 09/20/18 16:10 Ur Leukocyte Esterase 2+ Eder/uL (Negative) H 09/20/18 16:10 Urine WBC (Auto) 86 /hpf (0-5) H 09/20/18 16:10 Urine RBC (Auto) 5 /hpf (0-3) H 09/20/18 16:10 Ur Squamous Epith Cells < 1 /hpf (0-5) 09/20/18 16:10 Urine Bacteria Occ (<OCC) H 09/20/18 16:10 Urine HCG, Qual Negative (NEGATIVE) 09/20/18 16:10 Attending/Attestation - Attestation I have personally seen and examined this patient.: Yes I have fully participated in the care of the patient.: Yes I have reviewed all pertinent clinical information, including history, physical exam and plan: Yes Notes (Text): 09/25/18 09:41 Medical attending: Patient was seen and examined by me as well. Agree with the above note by the resident Patient is being DC with Levaquin, a RX for work note, and also later she asked for a small amount of Xanax for anxiety and we wrote her for 0.5 lasting 3 days. She is aware she needs to call and follow up with urology as well Audi Moore
[2018-09-24] MEDS ORDERED: Influenza Vaccine 60 mcg/0.5 mL SYR (4YR UP) IM ONE (15:00)
== END 2018-09-24 16:00 | disposition home or self-care (01) | DRG 463 ==
LOC: C.ER 15:20 → C.9E 20:07 → C.9S 09-21 12:02 → C.3T 09-21 17:03
PROVIDERS: ADMIT Family Medicine; ATTEND Family Medicine
PROC: BT1F1ZZ Fluoroscopy of Left Kidney, Ureter and Bladder using Low Osmolar Contrast (ICD-10-PCS; 2018-09-21)
PROC: 0T778DZ Dilation of Left Ureter with Intraluminal Device, Via Natural or Artificial Opening Endoscopic (ICD-10-PCS; principal; 2018-09-21 16:00)
DX: N13.6 Pyonephrosis (principal); R78.81 Bacteremia; N18.9 Chronic kidney disease, unspecified; N60.19 Diffuse cystic mastopathy of unspecified breast; L73.9 Follicular disorder, unspecified; F41.9 Anxiety disorder, unspecified; F17.210 Nicotine dependence, cigarettes, uncomplicated; Z87.442 Personal history of urinary calculi

== ENCOUNTER 2018-10-21 00:04 | Day surgery (SDC) | payer SELFPAY ==
[2018-10-21] MEDS ORDERED: Sodium Chloride 0.9% 1,000 ML IV ONE ×2 (00:22→03:23)
--- NOTE | 2018-10-21 00:22 | C.PDOC ---
History Of Present Illness The patient, whose past medical history includes kidney stones with history of stent placement, presents to the ED for evaluation of left-sided flank pain which began yesterday. Patient was evaluated in this ED for similar pain one m onth ago, and underwent left stent placement at the time. She denies fever, chills, nausea, vomiting. Time Seen by Provider: 10/21/18 00:21 Chief Complaint (Nursing): Abdominal Pain History Per: Patient History/Exam Limitations: no limitations Onset/Duration Of Symptoms: Hrs Current Symptoms Are (Timing): Still Present Severity: Moderate Pain Scale Rating Of: 6 Radiation Of Pain To:: Flank (left) Quality Of Discomfort: Sharp, Stabbing, "Pain" Associated Symptoms: denies: Fever, Chills, Nausea, Vomiting Exacerbating Factors: None Alleviating Factors: None Last Bowel Movement: Today Recent travel outside of the [place]: No Additional History Per: Patient Abnormal Vaginal Bleeding: No Past Medical History Reviewed: Historical Data, Nursing Documentation, Vital Signs Vital Signs: Last Vital Signs Temp 97.7 F 10/21/18 00:11 Pulse 100 H 10/21/18 00:11 Resp 20 10/21/18 00:11 BP 94/54 L 10/21/18 00:11 Pulse Ox 100 10/21/18 00:11 - Medical History PMH: Kidney Stones, Chronic Kidney Disease Surgical History: No Surg Hx - [facility] Procedures DILATION OF LEFT URETER WITH INTRALUMINAL DEVICE, ENDO (09/20/18) FLUOROSCOPY KIDNEY, URETER, BLADDER, L W L OSM CONTRAST (09/20/18) Family History: States: Unknown Family Hx - Social History Hx Tobacco Use: Yes Hx Alcohol Use: No Hx Substance Use: No - Immunization History Hx Tetanus Toxoid Vaccination: No Hx Influenza Vaccination: No Hx Pneumococcal Vaccination: No Review Of Systems Constitutional: Negative for: Fever, Chills Cardiovascular: Negative for: Chest Pain, Palpitations Respiratory: Negative for: Cough, Shortness of Breath Gastrointestinal: Negative for: Nausea, Vomiting, Abdominal Pain, Diarrhea Genitourinary: Negative for: Dysuria, Frequency, Hematuria Musculoskeletal: Positive for: Other (left flank pain ) Skin: Negative for: Rash, Lesions, Jaundice, Bruising Neurological: Negative for: Weakness, Numbness Physical Exam - Physical Exam Appears: Non-toxic, No Acute Distress Skin: Warm, Dry Head: Normacephalic Eye(s): bilateral: Normal Inspection Oral Mucosa: Moist Neck: Supple Chest: Symmetrical, No Deformity, No Tenderness Cardiovascular: Rhythm Regular, No Murmur Respiratory: No Rales, No Rhonchi, No Wheezing Gastrointestinal/Abdominal: Soft, No Tenderness, No Guarding, No Rebound Back: Other (left-sided flank tenderness, radiating towards back ) Extremity: Normal ROM, Capillary Refill (less than 2 seconds ) Neurological/Psych: Oriented x3 ED Course And Treatment - Laboratory Results Result Diagrams: 10/21/18 01:59 10/21/18 01:59 O2 Sat by Pulse Oximetry: 100 (on RA ) Pulse Ox Interpretation: Normal Progress Note: Bloodwork and urinalysis ordered and reviewed. Toradol IVP, Zofran IVP and IV Fluids given. Disposition Discussed With Dr.: Fito Nance Comment: accepted the pt onhis service and took over the care at 3:25 AM Doctor Will See Patient In The: ED Counseled Patient/Family Regarding: Studies Performed, Diagnosis - Disposition Disposition: HOSPITALIZED Disposition Time: 00:21 Condition: FAIR Forms: [facility] (Scottish) - POA Present On Arrival: None - Clinical Impression Clinical Impression: Abdominal pain, UTI (urinary tract infection), Kidney stone on left side, Renal colic on left side - Scribe Statement The provider has reviewed the documentation as recorded by the Scribe (Mariel Leger) Provider Attestation: All medical record entries made by the Scribe were at my direction and personally dictated by me. I have reviewed the chart and agree that the record accurately reflects my personal performance of the history, physical exam, medical decision making, and the department course for this patient. I have also personally directed, reviewed, and agree with the discharge instructions and disposition. Decision To Admit - Pt Status Changed To: Hospital Disposition Of: Observation - . Bed Request Type: Regular Admitting Physician: Fito Nance Patient Diagnosis: Abdominal pain, UTI (urinary tract infection), Kidney stone on left side, Renal colic on left side
[2018-10-21] MEDS ORDERED: Sodium Chloride 0.9% 1,000 ML ONE (00:33)
[2018-10-21 02:06] LABS: BASO % 0.6 % (0.0-2.0); EOS # 0.1 K/uL (0.0-0.7); EOS % 2.3 % (0.0-4.0); HEMOGLOBIN 11.1 g/dL (11.0-16.0); LYMPH # 1.8 K/uL (1.0-4.3); LYMPH % 32.8 % (20.0-40.0); MEAN CELL VOLUME 83.2 fL (81.0-99.0); MEAN CORPUSCULAR HGB CONC 32.5 g/dL (33.0-37.0); MONO # 0.5 K/uL (0.0-0.8); MONO % 9.7 % (0.0-10.0); NEUT % 54.6 % (50.0-75.0); RBC 4.1 Mil/uL (3.80-5.20); RED CELL DISTRIBUTION WIDTH 14.3 % (11.5-14.5); WHITE BLOOD COUNT 5.5 K/uL (4.8-10.8)
[2018-10-21 02:10] LABS: SQUAMOUS EPITHIAL 3 /hpf (0-5); URINE BILIRUBIN NEGATIVE (NEGATIVE); URINE BLOOD 3+ (NEGATIVE); URINE CLARITY Hazy (Clear); URINE COLOR Yellow (YELLOW); URINE GLUCOSE (UA) NORMAL (Normal); URINE LEUKOCYTE ESTERASE 2+ Leu/uL (Negative); URINE PROTEIN 2+ mg/dL (NEGATIVE); URINE UROBILINOGEN NORMAL mg/dL (0.2-1.0)
[2018-10-21 02:12] LABS: HCG,QUALITATIVE URINE NEGATIVE (NEGATIVE)
[2018-10-21 02:13] LABS: INR 1.1
[2018-10-21] MEDS ORDERED: cefTRIAXone IV 1 gm in Dextros 50 ML IVPB ONE (02:13)
[2018-10-21 02:47] LABS: ALB/GLOB RATIO 1.3 (1.0-2.1); ALBUMIN 4.4 g/dL (3.5-5.0); ALT/SGPT 9 U/L (9-52); AST/SGOT 34 U/L (14-36); BLOOD UREA NITROGEN 16 mg/dL (7-17); GFR NON-AFRICAN AMERICAN > 60
--- NOTE | 2018-10-21 03:11 | CP.PCM.HP ---
History of Present Illness - History of Present Illness History of Present Illness: PGY1 H&P for medicine hospitalist Patient is a 27 year old female with PMH of kidney stones with concurrent UTI, s/p left ureteral stent placement 09/21/18 presenting to ED with complaints of left sided flank pain. Denies fever, chills, chest pain, sob, abdominal pain, n/v/d. Urology: Dr. Hodan La PMH: nephrolithiasis PSH: Left ureteral stent placement 09/21/18. Prior urological procedures Meds: Levofloxacin, Flomax, Percocet, Xanax Allx: doxycycline-rash SHx: 1 cigarette daily x10yrs, social alcohol, denies drug use FHx: denies Past Patient History - Infectious Disease Hx of Infectious Diseases: None - Past Medical History & Family History Past Medical History?: No - Past Social History Smoking Status: Light Smoker < 10 Cigarettes Daily - RENAL Hx Chronic Kidney Disease: Yes Hx Kidney Stones: Yes - MUSCULOSKELETAL/RHEUMATOLOGICAL Hx Falls: No - GENITOURINARY/GYNECOLOGICAL Hx Genitourinary Disorders: Yes - PSYCHIATRIC Hx Substance Use: No - SURGICAL HISTORY Hx Surgeries: Yes Other/Comment: kidney stones 2014 - ANESTHESIA Hx Anesthesia: Yes Hx Anesthesia Reactions: No Hx Malignant Hyperthermia: No Meds Allergies/Adverse Reactions: Allergies Allergy/AdvReac Type Severity Reaction Status Date / Time doxycycline Allergy RASH Verified 10/21/18 00:17 Results - Vital Signs Recent Vital Signs: Last Vital Signs Temp 98 F 10/21/18 02:04 Pulse 88 10/21/18 02:04 Resp 16 10/21/18 02:04 BP 111/59 L 10/21/18 02:04 Pulse Ox 98 10/21/18 02:04 - Labs Result Diagrams: 10/21/18 01:59 10/21/18 01:59 Labs: Laboratory Results - last 24 hr 10/21/18 10/21/18 10/21/18 01:59 01:59 01:59 WBC 5.5 RBC 4.10 Hgb 11.1 Hct 34.1 MCV 83.2 MCH 27.0 MCHC 32.5 L RDW 14.3 Plt Count 197 D MPV 8.0 Neut % (Auto) 54.6 Lymph % (Auto) 32.8 [place] % (Auto) 9.7 Eos % (Auto) 2.3 Baso % (Auto) 0.6 Neut # (Auto) 3.0 Lymph # (Auto) 1.8 [place] # (Auto) 0.5 Eos # (Auto) 0.1 Baso # (Auto) 0.0 PT 12.0 INR 1.1 APTT 28 Sodium 135 Potassium 4.0 Chloride 101 Carbon Dioxide 25 Anion Gap 13 BUN 16 Creatinine 0.6 L Est GFR ( Amer) > 60 Est GFR (Non-Af Amer) > 60 Random Glucose 116 H D Calcium 9.0 Total Bilirubin 0.6 AST 34 ALT 9 D Alkaline Phosphatase 65 Total Protein 7.9 Albumin 4.4 Globulin 3.5 Albumin/Globulin Ratio 1.3 Urine Color Urine Clarity Urine pH Ur Specific [place] Urine Protein Urine Glucose (UA) Urine Ketones Urine Blood Urine Nitrate Urine Bilirubin Urine Urobilinogen Ur Leukocyte Esterase Urine WBC (Auto) Urine RBC (Auto) Ur Squamous Epith Cells Hyaline Casts Urine HCG, Qual 10/21/18 02:02 WBC RBC Hgb Hct MCV MCH MCHC RDW Plt Count MPV Neut % (Auto) Lymph % (Auto) [place] % (Auto) Eos % (Auto) Baso % (Auto) Neut # (Auto) Lymph # (Auto) [place] # (Auto) Eos # (Auto) Baso # (Auto) PT INR APTT Sodium Potassium Chloride Carbon Dioxide Anion Gap BUN Creatinine Est GFR ( Amer) Est GFR (Non-Af Amer) Random Glucose Calcium Total Bilirubin AST ALT Alkaline Phosphatase Total Protein Albumin Globulin Albumin/Globulin Ratio Urine Color Yellow Urine Clarity Hazy Urine pH 5.0 Ur Specific [place] 1.031 H Urine Protein 2+ H Urine Glucose (UA) Normal Urine Ketones Trace Urine Blood 3+ H Urine Nitrate Negative Urine Bilirubin Negative Urine Urobilinogen Normal Ur Leukocyte Esterase 2+ H Urine WBC (Auto) 30 H Urine RBC (Auto) 81 H Ur Squamous Epith Cells 3 Hyaline Casts 3-5 H Urine HCG, Qual Negative
[2018-10-21 08:55] VITALS: PULSE 70; RESP 18; TEMP 98.6; O2SAT 100
[2018-10-21] MEDS ORDERED: Midazolam 2 MG/2 ML VIAL ONE (10:06)
[2018-10-21] MEDS ORDERED: Propofol 10 mg/ml Inj (20 ML) ONE (10:06)
--- NOTE | 2018-10-21 10:52 | PCM.SURG1 ---
Surgeon's Initial Post Op Note - Surgeon's Notes Surgeon: Hodan La [place] Console Operator Track: none Type of Anesthesia: General LMA Pre-Operative Diagnosis: L renal colic. L ureteral calculus Operative Findings: same Post-Operative Diagnosis: same Operation Performed: cysto. L ureteroscopy. laser uretro-lithotripsy. stone basketing. stent insertion Specimen/Specimens Removed: urine. stones Estimated Blood Loss: EBL {In ML}: 0 Blood Products Given: N/A Date of Surgery/Procedure: 10/21/18 Time of Surgery/Procedure: 10:52
[2018-10-21] MEDS ORDERED: HYDROmorphone 0.5 mg/0.5 ml ISec IVP PRN (10:58)
[2018-10-21] MEDS ORDERED: Lactated Ringer's 1,000 ML IV SCH (11:00)
[2018-10-21] MEDS ORDERED: Gentamicin 80 mg in 0.9% NS 80 MG/100 ML BAG IVPB ONE (11:00)
--- NOTE | 2018-10-21 12:35 | RAD ---
Date of service: 10/21/2018 PROCEDURE: Intraoperative Fluoroscopy. HISTORY: LEFT URETERAL CALCULUS FINDINGS: Fluoroscopic assistance was provided.. Fluoroscopy time = 14.7 sec. Radiation dose = [id number] mGy. Please refer to the operative report from Dr. GAN, [place].
[2018-10-21 13:30] VITALS: BP 118/69
--- NOTE | 2018-10-22 03:16 | OP ---
PROCEDURE DATE: 10/21/2018 PREOPERATIVE DIAGNOSES: Left renal colic. Left ureteral calculus. POSTOPERATIVE DIAGNOSES: Left renal colic. Left ureteral calculus. PROCEDURE: Cystoscopy. Left ureteroscopy. Laser ureteral lithotripsy. Left ureteral stone basketing. Insertion of left ureteral stent. SURGEON: Erica La MD DESCRIPTION OF PROCEDURE: Procedure was performed under video endoscopic control as well as under fluoroscopic control. The patient received preoperative antibiotics. The patient was placed in the lithotomy position, after administration of general anesthesia. The genitalia prepped and draped sterilely. A #22-N[place]ib[place] cystoscope sheath was introduced with obturator. Urine was sent for bacteriologic examination. The left ureteral stent was grasped with rigid grasping forceps and delivered along with the cystoscope sheath to the urethra level of urethral meatus. Clerical [employer]reader fluoroscopy of the abdomen was obtained. There was no evidence of radiodense stones, along the course of the well positioned left ureteral stent. A 0.035-inch guidewire was inserted into the left ureteral stent and passed up to level of the kidney. The stent was removed. Ureteroscopy was performed. The #7-Namibian short ureteroscope was introduced per urethra. The left ureteral orifice identified. A second guidewire was inserted. The ureteroscope was advanced in atraumatic fashion. The distal ureteral stone was promptly visualized. Stone was approximately 5 mm in size. Stone was yellow and round and smoothed Laser ureterolithotripsy was performed with the holmium laser, using the [place] 65 micron fiber, in the dusting mode. There was excellent fragmentation as well as dusting of the stone. Three fragments were removed with the 2.8 [place] flat wire, 4-wire stone basket under direct ureteroscopic control in an atraumatic fashion. Repeat ureteroscopy demonstrated no further stones. There was sand noted within the ureter and within the bladder. The ureteroscope was advanced proximally up to level of the kidney. There were no other stones or mucosal lesions identified. The ureteroscope was removed under direct vision and confirmed the above findings. There was no evidence of mucosal trauma. There was no tumor. There were no residual stones. A 6-N[place]ibian multilength stent was inserted over the remaining guidewire. Proper stent position was confirmed with fluoroscopy and endoscopy. A distal suture was left to exit per urethra from the stent. The bladder was then drained. Cystoscope sheath removed. The patient tolerated the procedure without complication. The stent suture was placed within the vagina. The patient tolerated procedure without complication. Erica La MD
== END 2018-10-21 13:30 | disposition home or self-care (01) ==
LOC: C.SDS 00:04 → C.ER 00:04 → C.9E 03:46 → UNDOADMOB 03:46 → C.9E 04:31 → C.3T 04:31 → C.9E 04:55 → C.3T 04:55 → C.SDS 07:16
PROVIDERS: ATTEND Urology
DX: N20.1 Calculus of ureter (principal)
CPT/HCPCS: 52356; 80053; 81001; 82365; 82948; 84703; 85025; 85610; 85730; 87086; 88300; 96361; 96365; 96375; 99285; C1725; C1769; J0696; J1580; J1885; J2250; J2270; J2405; J2704; J3010; J7030